=== PATIENT | male | born 1960 | race Caucasian/White ===

== ENCOUNTER 2016-12-31 14:46 | Inpatient (IN) ==
[2016-12-31] MEDS ORDERED: ADENOCARD ONE (15:01)
[2016-12-31] MEDS ORDERED: NS 1,000 ML ONE ×2 (15:02→15:36)
[2016-12-31] MEDS ORDERED: ADENOCARD IV ONE ×2 (15:17)
[2016-12-31] MEDS ORDERED: CARDIZEM 100 MG/NS 100 MG/100 ML IVPB ONE (15:17)
[2016-12-31] MEDS ORDERED: NS 1,000 ML IV ONE ×2 (15:18→16:07)
--- NOTE | 2016-12-31 15:19 | EKG Report ---
Test Performed on : 12/31/2016 2:54:18 PM Test Reason : SOB Blood Pressure : / mmHG Vent. Rate : 181 BPM Atrial Rate : 181 BPM P-R Int : 000 ms QRS Dur : 078 ms QT Int : 210 ms P-R-T Axes : 000 083 -78 degrees QTc Int : [address] \T\ T wave abnormality, consider inferior ischemia Abnormal ECG When compared with ECG of 29-MAR-2014 11:03, Vent. rate has increased BY [address] now depressed in Inferior leads ST now depressed in Lateral leads T wave inversion now evident in Inferior leads Nonspecific T wave abnormality now evident in Lateral leads Unconfirmed Result
[2016-12-31] MEDS ORDERED: CARDIZEM ONE (15:21)
[2016-12-31 15:35] LABS: MANUAL DIFF NEEDED? NO
[2016-12-31 15:37] LABS: BASO% 0.3 % (0.0-0.8); EOS# 0.01 X1000 (0.0-0.7); EOS% 0.1 % (0.0-10.0); HEMATOCRIT 39.5 % (42.0-52.0); HEMOGLOBIN 12.8 g/dL (14.0-18.0); IMM GRAN# 0.02 X1000 (0.0-0.04); IMM GRAN% 0.3 % (0.0-0.5); LYMPH# 0.78 X1000 (1.2-3.4); LYMPH% 10.2 % (20.5-51.1); MCH 28.4 PG (27-31); MCHC 32.4 g/dL (33-37); MCV 87.8 FL (81-99); MONO# 0.35 X1000 (0.11-0.59); MONO% 4.6 % (1.7-9.3); MPV 9.6 FL (7.4-10.4); NEUT% 84.5 % (42.2-75.2); PLT 131 X1000 (130-400)
[2016-12-31 16:00] LABS: AGAP 11; ALKALINE PHOSPHATASE 103 U/L (32-122); BUN 10 mg/dL (8-22); CHLORIDE 95 mmol/L (98-107); COSMO 260; GOT 151 U/L (10-34); GPT 27 U/L (10-44); POTASSIUM 3.6 mmol/L (3.5-5.1); SODIUM 130 mmol/L (136-145); TCO2 25 mmol/L (25-35)
[2016-12-31] MEDS ORDERED: NEO-SYNEPHRINE 50 MG in NS 250 ML IV SCH (16:00)
[2016-12-31 16:23] LABS: BE 0.1 mmoll (-3.0-3.0); BLOOD TYPE ARTERIAL; DRAW SITE L BRACHIAL; METHB 1.1 % (0.0-1.5); O2(CT) 15.8 mL/dL (15.0-23.0); PO2(98.6) 83 mmHg (60-100); SAMPLE BLOOD; SAO2 97.2 % (95.0-100.0); pH(98.6) 7.31 (7.35-7.45)
[2016-12-31 16:26] LABS: CK PROFILE 3874 U/L (24-204)
[2016-12-31 16:28] LABS: ALLEN TEST NO; MODALITY CANNULA; PCO2(98.6) 54 mmHg (35-45)
[2016-12-31 17:10] LABS: CK INDEX 0.2 (0.0-2.5); CK-MB 7.88 ng/mL (0.0-5.0)
[2016-12-31 17:14] LABS: INR 1.1 (0.86-1.15); PROTIME 14.5 Seconds (12.1-15.5)
[2016-12-31 17:15] LABS: PTT PL 33.7 Seconds (22.6-43.9)
--- NOTE | 2016-12-31 17:18 | Diag Imaging Result Document ---
PROCEDURE NAME: CHEST-PORTABLE - 12/31/2016 PORTABLE CHEST X-RAY: COMPARISON: 03/29/2014. FINDINGS: Heart size and pulmonary vascularity is top normal. There are ill-defined infiltrates bilaterally, mostly in the upper lobes and left lung base. No pneumothorax or large effusion. IMPRESSION: Ill-defined interstitial infiltrates bilaterally consistent with pulmonary edema or pneumonia.
--- NOTE | 2016-12-31 17:59 | Diag Imaging Result Document ---
PROCEDURE NAME: HEAD W/O CONTRAST - 12/31/[address]: A CT dose reduction protocol was used. COMPARISON: 03/29/2014. FINDINGS: The ventricles and sulci are normal in size and contour. There is no mass, hemorrhage, or evidence of acute ischemia. The bony calvaria is intact. The visualized paranasal sinuses and mastoid air cells are clear. IMPRESSION: Negative head CT. MTDD
[2016-12-31 18:06] LABS: UR AMPHETAMINES QUAL PRESUMPTIVE POSITIVE (NONE DETECT); UR BARBITUATES QUAL NONE DETECTED (NONE DETECT); UR BENZODIAZEPIN QUAL PRESUMPTIVE POSITIVE (NONE DETECT); UR CANNABINOIDS QUAL PRESUMPTIVE POSITIVE (NONE DETECT); UR COCAINE QUAL NONE DETECTED (NONE DETECT); UR MDMA QUAL NONE DETECTED (NONE DETECT); UR METHADONE QUAL NONE DETECTED (NONE DETECT); UR METHAMPHETAMINE QUAL NONE DETECTED (NONE DETECT); UR OPIATES QUAL NONE DETECTED (NONE DETECT); UR OXYCODONE QUAL NONE DETECTED (NONE DETECT); UR PCP QUAL NONE DETECTED (NONE DETECT); UR TCA QUAL NONE DETECTED (NONE DETECT)
[2016-12-31 18:10] LABS: URINE EPITHELIAL CELLS <10 /HPF (<10); URINE RBC <10 /HPF (<10); URINE WBC <10 /HPF (<10)
[2016-12-31 18:11] LABS: BILIRUBIN URINE NEGATIVE (NEGATIVE); BLOOD URINE 2+ (NEGATIVE); CLARITY CLEAR (CLEAR); COLOR YELLOW; GLUCOSE URINE NEGATIVE (NEGATIVE); LEUKOCYTES URINE TRACE (NEGATIVE); NITRITE URINE NEGATIVE (NEGATIVE); PROTEIN URINE 1+(30 mg/dL) mg/dL (NEGATIVE); URINE CULTURE PL NEEDED? YES; URINE SOURCE CLEAN CATCH; UROBILINOGEN URINE 1+(1 mg/dL)
[2016-12-31] MEDS: LEVAQUIN 750 MG/D5W 750 MG/150 ML IVPB IV SCH (19:16)
[2016-12-31] MEDS ORDERED: ZOFRAN ODT PO PRN (21:04)
[2016-12-31] MEDS ORDERED: VENTOLIN HFA INH PRN (21:04)
[2016-12-31] MEDS: ZOSYN 3.375 GM/NS 3.375 GM/50 ML IVPB IV SCH (21:49)
[2016-12-31] MEDS: XANAX PO PRN (21:50)
[2016-12-31] MEDS: LYRICA PO SCH (21:50)
[2016-12-31] MEDS: NS 1,000 ML IV SCH (21:50)
[2016-12-31] MEDS: DUONEB (A & A) INH SCH (22:35)
[2017-01-01] MEDS: AMBIEN PO PRN ×2 (01:14→20:19)
[2017-01-01] MEDS: PHENERGAN PO PRN ×2 (01:14→19:52)
[2017-01-01] MEDS: ZOSYN 3.375 GM/NS 3.375 GM/50 ML IVPB IV SCH ×4 (01:52→21:56)
[2017-01-01] MEDS: DUONEB (A & A) INH SCH ×6 (04:48→22:50)
[2017-01-01 06:37] LABS: HEMATOCRIT 37.8 % (42.0-52.0); HEMOGLOBIN 11.7 g/dL (14.0-18.0); MCH 27.9 PG (27-31); MCV 90.2 FL (81-99); RBC 4.19 XMIL (4.7-6.1)
[2017-01-01 07:40] LABS: AGAP 8; ALBUMIN 2.8 g/dL (3.5-5.0); ALKALINE PHOSPHATASE 104 U/L (32-122); BUN 7 mg/dL (8-22); CALCIUM 7.7 mg/dL (8.8-10.2); CHLORIDE 100 mmol/L (98-107); COSMO 267; GOT 132 U/L (10-34); GPT 27 U/L (10-44); MAGNESIUM 1.6 mg/dL (1.5-2.7); POTASSIUM 3.8 mmol/L (3.5-5.1); SODIUM 135 mmol/L (136-145); TCO2 27 mmol/L (25-35); TOTAL PROTEIN 5.4 g/dL (6.3-8.3)
[2017-01-01] MEDS: ADVAIR 100/50 DISKUS INH SCH ×2 (07:57→08:02)
[2017-01-01 08:10] LABS: CK INDEX 0.2 (0.0-2.5); CK-MB 6.08 ng/mL (0.0-5.0)
--- NOTE | 2017-01-01 09:56 | EKG Report ---
Test Performed on : 01/01/2017 09:12:24 AM Test Reason : SVT Blood Pressure : / mmHG Vent. Rate : 085 BPM Atrial Rate : 085 BPM P-R Int : 170 ms QRS Dur : 082 ms QT Int : 356 ms P-R-T Axes : 064 072 063 degrees QTc Int : 423 ms Sinus rhythm. with premature atrial complexes. in a pattern of bigeminy. Otherwise normal ECG When compared with ECG of 31-DEC-2016 15:35, Sinus rhythm. has replaced Atrial flutter. Confirmed by Ishaan Conrad MD ([id number]) on 01/05/2017 8:42:06 AM
[2017-01-01] MEDS: NS 1,000 ML IV SCH ×2 (09:57→23:39)
[2017-01-01] MEDS: BETAPACE PO SCH ×2 (09:59→20:19)
[2017-01-01] MEDS: PRILOSEC PO SCH ×2 (09:59→20:19)
[2017-01-01] MEDS: LYRICA PO SCH ×2 (09:59→20:20)
--- NOTE | 2017-01-01 10:01 | EKG Report ---
Test Performed on : 12/31/2016 3:35:26 PM Test Reason : SOB Blood Pressure : / mmHG Vent. Rate : 107 BPM Atrial Rate : 366 BPM P-R Int : 000 ms QRS Dur : 080 ms QT Int : 300 ms P-R-T Axes : 121 084 070 degrees QTc Int : 400 ms Atrial flutter. with variable AV block. Abnormal ECG When compared with ECG of 31-DEC-2016 14:54, (Unconfirmed) Atrial flutter. has replaced Sinus rhythm. Vent. rate has decreased BY [address] no longer depressed in Inferior leads ST no longer depressed in Lateral leads T wave inversion no longer evident in Inferior leads Nonspecific T wave abnormality no longer evident in Lateral leads Unconfirmed Result
[2017-01-01] MEDS ORDERED: TYLENOL PR PRN ×2 (15:36→21:07)
[2017-01-01] MEDS ORDERED: VANCOMYCIN IV PER PHARMACY MISC SCH (16:30)
[2017-01-01] MEDS ORDERED: SOLU-MEDROL IV SCH (17:00)
[2017-01-01 17:05] LABS: BLOOD TYPE ARTERIAL; SAMPLE BLOOD
[2017-01-01] MEDS: LEVAQUIN 750 MG/D5W 750 MG/150 ML IVPB IV SCH (17:45)
[2017-01-01] MEDS ORDERED: VANCOMYCIN 2,150 MG in NS 500 ML IV ONE (18:00)
--- NOTE | 2017-01-01 18:19 | HISTORY AND PHYSICAL ---
PRIMARY CARE PROVIDER: None. CHIEF COMPLAINT: Friend tried to wake him all day and was having difficulty. HISTORY OF PRESENT ILLNESS: Mr. Henok Orellana is a 56-year-old male with a history of COPD, bipolar disorder, seizure disorder who presented to the ER obtunded. History was mainly obtained from medical records and required constant tactile stimulation in order to obtain information. He was also found to have SVT versus atrial flutter with RVR on admission. He does take sotalol at home which is likely for this. He was able to state his name and what year it was. He reports that he has been having abdominal pain for 3 days now, but that pain is resolved. He denies diarrhea or fever, nausea or vomiting. His abdomen is soft, with hypoactive bowel sounds. Mildly distended. He also presented to the ER with hypotension and was started on Terrance- Synephrine. He was transferred to the ICU for further monitoring. PAST MEDICAL HISTORY: COPD. Concussion with skull fracture. Bipolar disorder. 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 GERD. Seizure disorder related to Xanax. Hypertension. Chronic pain syndrome. 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 Partial liver laceration. Right clavicle with plates. Right ankle with plates and screws. SOCIAL HISTORY: Smokes 1 pack per day since age of 13. He does drink alcohol. The amount is unknown. He denies any illicit drug use, but has a positive urine drug screen for amphetamines, benzodiazepines and cannabinoids. Alcohol was 0. FAMILY HISTORY: Had 2 sisters that were both bipolar. REVIEW OF SYSTEMS: Difficult to obtain secondary to lethargy. ALLERGIES: Flexeril and tramadol. HOME MEDICATIONS: Albuterol/Atrovent inhaled every 4 hours as needed. Albuterol sulfate inhaler. Xanax 1 mg p.o. 3 times a day as needed. Suboxone 8 mg sublingual 3 times a day. Advair inhaled twice daily. Omeprazole 40 mg p.o. twice daily. Zofran 4 mg p.o. every 6 hours as needed. Penicillin 500 mg p.o. twice daily. Lyrica 300 mg p.o. twice daily. Phenergan 25 mg every 6 hours as needed. Betapace sotalol 40 mg p.o. twice daily. Ambien 5 mg p.o. nightly as needed. Unsure if these medications are all accurate and up-to-date as it is difficult to obtain information from him given his neurological status. LABORATORY DATA: White blood cells 7000, hemoglobin 12, hematocrit 39, platelet count 131,000. INR 1.1. PTT 33.7, pH 7.31, pCO2 54, PO2 is 83. Base excess 0.1. Saturation 93%. Lactate 0.6, sodium was 130, potassium 3.6, BUN 10, creatinine 0.8, glucose 94, calcium 8. Total bilirubin 0.4, AST 151. ALT 27. CK 3874. MB was 7.88. Troponin less than 0.01. Plasma lactate 0.8. Urinalysis 1+ protein, 2+ ketones, 2+ blood, trace white blood cells, 2+ bacteria. Urine drug screen positive for amphetamines, positive for benzodiazepines, positive for cannabinoid and 0 alcohol. IMAGING: EKG on admit: Atrial flutter, rate was 107 at mostly 3:1. QTc 400. Chest x-ray: Interstitial infiltrates bilaterally consistent with pulmonary edema or pneumonia. EKG repeated at 3:15 p.m.: Supraventricular tachycardia, but still looks like an atrial flutter 2:3:1. Rate was 181. He had received adenosine 6 mg and 12 mg for that. Head CT negative. No acute findings. PHYSICAL EXAMINATION: VITAL SIGNS: On admit, temperature 99 degrees, heart rate was 183. Blood pressure was 91/76, saturation was 97% on nasal cannula. Respiratory rate 21. 5 feet 9 inches tall , 161 pounds, body mass index 23.8. GENERAL: Mr. Orellana today is very drowsy, he will arouse to verbal and tactile stimuli. Answers some questions, but easily falls asleep. HEENT: Atraumatic, normocephalic. Pupils are equal and reactive. Extraocular movements intact. Mucous membranes are dry. NECK: No JVD or carotid bruits noted. CARDIOVASCULAR: S1, S2. Regular rate and rhythm. No rubs, gallops, murmurs. PULMONARY: Coarse bilaterally. Rhonchi. No wheezing. No accessory muscle use or work of breathing noted. Currently on nasal cannula. GI: Soft. Semi-distended. Negative for pain. Nontender. Hypoactive bowel cells x4. NEUROLOGIC: Oriented to name and year. Very drowsy. He will follow commands. Moves all extremities equally. Facial symmetric. EXTREMITIES: No edema noted. +2 dorsalis and radial pulses. SKIN: Warm, dry, intact. ASSESSMENT AND PLAN: 1. Unresponsive secondary to toxic encephalopathy due to opiate use. No signs of withdrawal. Still continues to be very lethargic. Head computed tomography was negative. Monitor for withdrawal symptoms. 2. He was negative for cocaine. Positive for amphetamines and cannabinoids. Cessation was encouraged. 3. Atrial flutter with rapid ventricular response. Also with run of supraventricular tachycardia with a heart rate of 180s. Currently sinus rhythm, but on admit required 2 doses of adenosine and sotalol was resumed. May have to consider holding sotalol given patient has hypotension. 4. Hypotension. Currently on Terrance-Synephrine drip. 5. Bipolar disorder. 6. Chronic obstructive pulmonary disease with mild exacerbation. We will add intravenous steroids and make sure there are inhaled nebulizers. 7. Pneumonia, community acquired. Continue with Zosyn, Levaquin and vancomycin has been started. Blood culture is pending. Unable to produce enough phlegm for culture. 8. Hyponatremia. On intravenous fluid hydration. 9. Mild transaminitis likely secondary to dehydration. 10. Anemia. 11. Tobacco use. Cessation discussed. 12. Thrombosis prophylaxis. Sequential Compression Devices. 13. Gastrointestinal prophylaxis. Proton pump inhibitor. Dictated by DIONNE Alston for Herman Murillo MD cc: DIONNE Alston MD [facility]
[2017-01-01] MEDS: MUCOMYST 20% INH SCH (18:48)
[2017-01-01] MEDS: XANAX PO PRN (19:53)
[2017-01-01] MEDS ORDERED: TYLENOL ONE (21:06)
[2017-01-02] MEDS: NS 1,000 ML IV SCH ×4 (01:21→21:34)
[2017-01-02] MEDS: SOLU-MEDROL IV SCH ×3 (01:21→18:34)
--- NOTE | 2017-01-02 01:25 | PROGRESS NOTE ---
DATE: 01/01/2017 SUBJECTIVE: The patient is still sedated, but arousable. OBJECTIVE: Temperature 101.9, current 97.4, pulse 83 to 98, respiratory rate 14 to 20, BP 105/49, sat 94% on 2 L.General: Patient is somnolent but arousable. HEENT: Normocephalic, atraumatic. Neck: Supple. Cardiovascular: Regular rate. Chest: Relatively clear. Abdomen: Soft. Extremities: Moves all extremities. ASSESSMENT: 1. Toxic encephalopathy, secondary to opiate use. He continues to be very lethargic this afternoon. 2. Abnormal UDS, positive for amphetamines. 3. A flutter with rapid ventricular response. 4. Hypotension. Continue Terrance-Synephrine drip. We will wean as tolerated. 5. Bipolar. 6. COPD with exacerbation. Continue steroids and breathing treatments. 7. Pneumonia, certainly aspiration is a likely possibility. He is currently on Zosyn, Levaquin and vancomycin. 8. Hyponatremia. PLAN: We will continue patient in the ICU. We will wean off of Terrance-Synephrine as tolerated. We will recheck his labs in the morning. Further orders as needed. cc: Herman Murillo MD
[2017-01-02] MEDS: ZOSYN 3.375 GM/NS 3.375 GM/50 ML IVPB IV SCH ×4 (01:42→21:31)
[2017-01-02] MEDS: DUONEB (A & A) INH SCH ×6 (03:00→23:03)
[2017-01-02] MEDS: VANCOMYCIN 1,600 MG in NS 250 ML IV SCH ×2 (06:00→18:27)
[2017-01-02] MEDS ORDERED: PRILOSEC PO SCH (07:00)
--- NOTE | 2017-01-02 07:11 | Diag Imaging Result Document ---
PROCEDURE NAME: KUB ABDOMEN - 01/01/2017 AP SUPINE ABDOMEN: COMPARISON: Compared with 05/29/2012. FINDINGS: There are artifacts from grid lines which limit detail. The bowel gas pattern appears nonspecific and nonobstructive. There is some retained fecal debris in the colon, although this is not obviously excessive. There are surgical clips at the right upper quadrant. There is a right total hip prosthesis noted, as well of old deformity of the right iliac bone. IMPRESSION: Nonspecific bowel gas pattern.
[2017-01-02] MEDS: ADVAIR 100/50 DISKUS INH SCH ×2 (07:47→19:13)
[2017-01-02] MEDS: MUCOMYST 20% INH SCH ×2 (07:47→19:13)
[2017-01-02 07:56] LABS: MANUAL DIFF NEEDED? NO
[2017-01-02 08:05] LABS: BASO% 0.4 % (0.0-0.8); HEMATOCRIT 39.3 % (42.0-52.0); HEMOGLOBIN 12.3 g/dL (14.0-18.0); IMM GRAN# 0.01 X1000 (0.0-0.04); IMM GRAN% 0.4 % (0.0-0.5); LYMPH# 0.34 X1000 (1.2-3.4); LYMPH% 12.3 % (20.5-51.1); MCH 28.3 PG (27-31); MCHC 31.3 g/dL (33-37); MCV 90.3 FL (81-99); MONO# 0.07 X1000 (0.11-0.59); MONO% 2.5 % (1.7-9.3); MPV 9.6 FL (7.4-10.4); NEUT% 84.4 % (42.2-75.2); PLT 76 X1000 (130-400); RBC 4.35 XMIL (4.7-6.1)
[2017-01-02 08:28] LABS: AGAP 8; ALBUMIN 2.6 g/dL (3.5-5.0); ALKALINE PHOSPHATASE 183 U/L (32-122); BUN 10 mg/dL (8-22); CALCIUM 7.9 mg/dL (8.8-10.2); CHLORIDE 106 mmol/L (98-107); COSMO 285; GOT 180 U/L (10-34); GPT 51 U/L (10-44); IRON SATURATION 7 %; MAGNESIUM 1.7 mg/dL (1.5-2.7); POTASSIUM 3.9 mmol/L (3.5-5.1); SODIUM 142 mmol/L (136-145); TCO2 28 mmol/L (25-35); TIBC 173 ug/dL; TOTAL IRON 12 ug/dL (53-167); TOTAL PROTEIN 5.2 g/dL (6.3-8.3); UNBOUND IRON 161 ug/dL (112-346)
[2017-01-02] MEDS: LYRICA PO SCH (09:29)
[2017-01-02] MEDS: BETAPACE PO SCH ×2 (09:29→21:32)
--- NOTE | 2017-01-02 10:10 | PROGRESS NOTE ---
DATE: 01/02/2017 SUBJECTIVE: Today Mr. Orellana is pretty lethargic and, according to the nurses, he was boisterous last night and was given Ativan and zolpidem to help him calm down, but he has been just too obtunded today. He would kind of wake-up and stare at you, but then just go straight back to sleep. OBJECTIVE: Vital signs: Blood pressure is 107/54, pulse of 68, respirations 18 and temperature 96.6 degrees. General exam: Mr. Orellana is a 56-year-old male. He was in bed. He did not seem to be in any distress. HEENT: Mucosa is pink and moist. Anicteric. Acyanotic. Neck: Supple. There is no JVD. Chest: Air entry is bilaterally reduced. There is prolonged expiratory phase of respiration and some diffuse end-expiratory wheezing. Did not appreciate any crackles. Cardiovascular: Regular rate and rhythm. Abdomen: Soft, did not appreciate any hepatosplenomegaly. Bowel sounds are present. Extremities: No pedal edema. There is amputation of the right distal forearm. [employer]: Patient is drowsy, but would wake-up and stare at you. He would move all his extremities, but he is not following any commands. He will groan and move extremities spontaneously. LABORATORY DATA: WBC is 2.76, hemoglobin is 12.3, platelet count of 76. Chemistry: Sodium is 142, potassium is 3.9, chloride is 106, bicarbonate is 28. Renal functions are normal. AST is 180, ALT is 51, alkaline phosphatase is 182. Creatinine is 3313. ASSESSMENT: 1. Altered mental status due to toxic metabolic encephalopathy from recreational drug abuse. Patient's urine toxicology was positive for amphetamine and benzodiazepines and cannabinoids. 2. Polypharmacy drug abuse. 3. Bronchospasms with a chest x-ray consistent with infiltrates in both upper lobes concerning for aspiration pneumonia. Patient is getting antibiotics. 4. Iron deficiency anemia. This is noted. We will replace it when patient infection is better controlled. 5. Thrombocytopenia likely drug induced with possible hydration effect, as well as infectious induced. We will continue to monitor this. 6. Rhabdomyolysis. CK is pretty elevated and in the context of amphetamine, benzodiazepine and cannabinoid abuse, it is very likely he might have had mild rhabdomyolysis. We will continue with aggressive fluid resuscitation. PLAN: So, in general, Mr. Orellana is extremely drowsy today. I would withhold all his sedatives. Will continue the current antibiotic coverage. I will discontinue the levothyroxine since he is already on Zosyn and vancomycin, which I think has pretty much a very broad coverage. We will re-evaluate him later on today to see how he is doing. cc: Quirino Page MD
[2017-01-02 10:28] LABS: BE 3.1 mmoll (-3.0-3.0); DRAW SITE L RADIAL; O2(CT) 14.8 mL/dL (15.0-23.0); PO2(98.6) 54 mmHg (60-100); SAO2 91.9 % (95.0-100.0); THB 11.8 g/dL (11.5-17.4); pH(98.6) 7.31 (7.35-7.45)
[2017-01-02 10:33] LABS: PCO2(98.6) 61 mmHg (35-45)
[2017-01-02 10:34] LABS: ALLEN TEST YES; MODALITY CANNULA
[2017-01-02 16:11] LABS: FERRITIN 215 ng/mL (30-400)
[2017-01-03] MEDS: SOLU-MEDROL IV SCH ×3 (01:11→19:01)
[2017-01-03] MEDS: ZOSYN 3.375 GM/NS 3.375 GM/50 ML IVPB IV SCH ×4 (01:51→20:55)
[2017-01-03] MEDS: DUONEB (A & A) INH SCH ×6 (03:17→23:17)
[2017-01-03 03:26] LABS: BASO% 0.4 % (0.0-0.8); HEMATOCRIT 38.2 % (42.0-52.0); HEMOGLOBIN 11.7 g/dL (14.0-18.0); IMM GRAN# 0.03 X1000 (0.0-0.04); IMM GRAN% 0.6 % (0.0-0.5); LYMPH# 0.67 X1000 (1.2-3.4); LYMPH% 13.7 % (20.5-51.1); MANUAL DIFF NEEDED? YES; MCH 27.5 PG (27-31); MCHC 30.6 g/dL (33-37); MCV 89.9 FL (81-99); MONO# 0.21 X1000 (0.11-0.59); MONO% 4.3 % (1.7-9.3); MPV 9.8 FL (7.4-10.4); PLT 79 X1000 (130-400); RBC 4.25 XMIL (4.7-6.1)
[2017-01-03 03:43] LABS: ALBUMIN 2.7 g/dL (3.5-5.0); MAGNESIUM 1.8 mg/dL (1.5-2.7); POTASSIUM 3.8 mmol/L (3.5-5.1); TOTAL BILIRUBIN 0.2 mg/dL (0.20-1.00); TOTAL PROTEIN 5.4 g/dL (6.3-8.3)
[2017-01-03] MEDS ORDERED: HALDOL IV ONE (03:48)
[2017-01-03 03:52] LABS: BANDS 2 % (0-1); LYMPHS 22 % (21-51)
[2017-01-03] MEDS: NS 1,000 ML IV SCH ×3 (03:52→17:00)
[2017-01-03 03:58] LABS: CK INDEX 0.5 (0.0-2.5); CK-MB 2.97 ng/mL (0.0-5.0)
[2017-01-03] MEDS: VANCOMYCIN 1,600 MG in NS 250 ML IV SCH (05:00)
[2017-01-03] MEDS: ADVAIR 100/50 DISKUS INH SCH ×2 (07:33→20:04)
[2017-01-03] MEDS: MUCOMYST 20% INH SCH (07:33)
[2017-01-03] MEDS: BETAPACE PO SCH ×2 (10:42→20:56)
--- NOTE | 2017-01-03 11:09 | PROGRESS NOTE ---
DATE: 01/03/2017 SUBJECTIVE: Today Mr. Orellana refers to be doing fine. I understand he had a lot of agitation and bad behaviors overnight. OBJECTIVE: Vital Signs: Blood pressure is 147/94, pulse is 78, respiration is 19, temperature is 98.2 degrees. General: Mr. Orellana is a 56-year-old male. He was in bed. He did not seem to be in any remarkable distress. HEENT: Mucosa is pink, slightly dry. Anicteric. Acyanotic. Neck: Supple. Chest: Good air entry bilateral. There is diffuse bilateral wheezing and expiratory wheezing. There is also prolonged expiratory phase of respiration. I did not appreciate any crackles. Cardiovascular: Regular rate and rhythm. No murmurs, no rubs, no gallops. Abdomen: Soft. Mildly distended, but nontender. There are some old surgical scars on the anterior abdominal wall. Central Nervous System: The patient is alert, follows commands. He seems to be disoriented to place, but he is oriented to person. Extremities: The patient has a right below-elbow amputation. LABORATORY DATA: WBC is 4.89, hemoglobin is 11.7, platelet count is 79,000. Chemistry: Sodium is 141, potassium is 3.8, chloride is 108, bicarbonate is 25; creatinine is 1.9, which has worsened since yesterday. AST is down to 103, ALT is normalized to 38. Alkaline phosphatase is down to 133. Creatine kinase is 548, which is remarkably improved. Cortisol level is 8.8. ASSESSMENT AND PLAN: 1. Altered mental status due toxic metabolic encephalopathy from recreational drug abuse. The patient's toxicology was positive for benzodiazepines, amphetamines, cannabinoids. While he is in the hospital, I understand he has been every now and then getting agitated and boisterous and gets very offensive behaviors. We will use as needed Haldol to control agitation if necessary. 2. Polydrug abuse. 3. Bronchospasms, with a chest x-ray consistent with infiltrates in both upper lobes concerning for aspiration pneumonia. We will continue with the current antibiotics. 4. Suspected chronic obstructive pulmonary disease. We will continue with adequate bronchodilation, steroids, and antibiotics. 5. Iron deficiency anemia. This is noted. We will replace this when the infection is under control. 6. Thrombocytopenia. This is improving. 7. Rhabdomyolysis. The patient came in with a creatine kinase of 3874. It is down to 548 today, showing improvement. 8. Acute kidney injury. Creatinine has worsened to 1.9; however, the patient's urine output has picked up this morning to about 50 mL/hour. We are going to continue with the normal saline at 150 mL/hour and review him later today. We will pay particular attention to his cardiorespiratory status to make sure he does not have fluid overload. 9. Transient adrenal insufficiency. Cortisol level was 8.8. Unfortunately, the patient was started on methylprednisolone, so we will not be able to do a stress test, but I would advise that he follows up with endocrine somewhat later to check on this. 10. Hypotension is resolved. The patient now is off the pressors. Both blood culture and urine cultures have also been negative. I think this is probably related to the transient adrenal insufficiency, which the steroid is helping. 11. Constipation on a chest x-ray. We will would address this more symptomatically. 12. Atrial fibrillation with rapid ventricular response on presentation. This is controlled. I think this is probably related to the drugs that he has been on. The patient is on sotalol and that is one of his home medications. As I said, rate is better controlled now. cc: Quirino Page MD
[2017-01-04] MEDS: SOLU-MEDROL IV SCH ×3 (01:19→17:33)
[2017-01-04] MEDS: NS 1,000 ML IV SCH ×4 (01:21→08:29)
[2017-01-04] MEDS: ZOSYN 3.375 GM/NS 3.375 GM/50 ML IVPB IV SCH ×2 (02:15→08:24)
[2017-01-04] MEDS: DUONEB (A & A) INH SCH ×6 (04:34→23:30)
[2017-01-04 07:25] LABS: BASO% 0.6 % (0.0-0.8); EOS# 0.05 X1000 (0.0-0.7); EOS% 0.8 % (0.0-10.0); HEMATOCRIT 41.3 % (42.0-52.0); HEMOGLOBIN 12.9 g/dL (14.0-18.0); IMM GRAN# 0.03 X1000 (0.0-0.04); IMM GRAN% 0.5 % (0.0-0.5); LYMPH# 0.56 X1000 (1.2-3.4); LYMPH% 8.9 % (20.5-51.1); MANUAL DIFF NEEDED? YES; MCH 28.1 PG (27-31); MCHC 31.2 g/dL (33-37); MONO# 0.24 X1000 (0.11-0.59); MONO% 3.8 % (1.7-9.3); MPV 10.8 FL (7.4-10.4); NEUT% 85.4 % (42.2-75.2); PLT 79 X1000 (130-400); RBC 4.59 XMIL (4.7-6.1)
[2017-01-04] MEDS: MUCOMYST 20% INH SCH ×2 (07:26→19:30)
[2017-01-04 07:53] LABS: AGAP 14; ALBUMIN 2.8 g/dL (3.5-5.0); ALKALINE PHOSPHATASE 117 U/L (32-122); BUN 34 mg/dL (8-22); CALCIUM 8.1 mg/dL (8.8-10.2); CHLORIDE 108 mmol/L (98-107); COSMO 295; GOT 61 U/L (10-34); GPT 31 U/L (10-44); MAGNESIUM 1.9 mg/dL (1.5-2.7); POTASSIUM 3.9 mmol/L (3.5-5.1); SODIUM 143 mmol/L (136-145); TCO2 21 mmol/L (25-35); TOTAL PROTEIN 5.8 g/dL (6.3-8.3)
[2017-01-04 08:14] LABS: BANDS 6 % (0-1); LYMPHS 14 % (21-51); MONO 8 % (1-9)
[2017-01-04] MEDS ORDERED: SODIUM BICARBONATE 8.4% 150 MEQ in D5W 1,000 ML IV SCH (08:57)
[2017-01-04] MEDS ORDERED: ZOSYN 2.25 GM/NS 2.25 GM/50 ML IVPB IV SCH (09:00)
--- NOTE | 2017-01-04 10:06 | Diag Imaging Result Document ---
PROCEDURE NAME: CHEST-PORTABLE - 01/04/2017 PORTABLE CHEST X-RAY, 01/04/2017: COMPARISON: 12/31/2016. FINDINGS: There is perhaps some mild worsening in the ill-defined bibasilar infiltrates, most notably in the costophrenic angles. Heart size remains normal. Stable pulmonary vascular congestion. Minimal upper lobe infiltrates are decreased from prior. No pneumothorax or large effusion. IMPRESSION: Mixed changes, with overall worsening in the lung bases.
[2017-01-04 10:33] LABS: URINE SOURCE CATH
[2017-01-04 10:41] LABS: UR CREAT RANDOM 52.6 mg/dL (14-26)
[2017-01-04 10:43] LABS: BILIRUBIN URINE NEGATIVE (NEGATIVE); BLOOD URINE 1+ (NEGATIVE); CLARITY CLEAR (CLEAR); COLOR YELLOW; GLUCOSE URINE NEGATIVE (NEGATIVE); LEUKOCYTES URINE NEGATIVE (NEGATIVE); NITRITE URINE NEGATIVE (NEGATIVE); PROTEIN URINE TRACE mg/dL (NEGATIVE); URINE MICROSCOPIC NEEDED? YES; UROBILINOGEN URINE NORMAL
--- NOTE | 2017-01-04 10:44 | PROGRESS NOTE ---
DATE: 01/04/2017 SUBJECTIVE: Today Mr. Orellana refers to be doing fine. Per the nursing staff, he was a little bit more calm last night. His urine output is consistently about 50 mL per hour. OBJECTIVE: Vital Signs: Blood pressure is 143/86, pulse of 80, respirations 20 , and temperature is 98.0. General: Mr. Orellana is a 56-year-old male. He was in bed. He did not seem to be in any distress. He was sleeping but was easily arousable. HEENT: Mucosa is pink and slightly dry. Anicteric. Acyanotic. Neck: Supple. Chest: Air entry is bilaterally reduced. There are bilateral end expiratory wheezes without prolonged phase of expiration and there are also a few bibasilar crackles. Cardiovascular: Regular rate and rhythm. No murmurs. No rubs. No gallops. Abdomen: Soft and distended but nontender. Bowel sounds are slightly hypoactive. There are some old surgical scars on the anterior abdominal wall. Central Nervous System: Patient is sleepy but easily arousable; oriented to person but disoriented to place and to time. Extremities: No pedal edema. 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 LABORATORY DATA: WBC is 6.31, hemoglobin 12.2, and platelet count 79. Sodium is 143, potassium 3.9, chloride 108, and bicarb 21. BUN is up to 34. Creatinine is up to 2.6. AST is down to 61. ALT has normalized. Alkaline phosphatase has normalized. ASSESSMENT: 1. Altered mental status due to toxic metabolic encephalopathy from recreational drug abuse. Patient's urine toxicology on presentation was positive for benzodiazepines, amphetamines, and cannabinoids. He is a whole lot better today than days before. We will use p.r.n. Haldol if necessary for agitation. 2. Recreational polydrug abuse. 3. Bronchospasm with chest x-ray consistent with infiltrates in both upper lobes concerning for aspiration during the time the patient was encephalopathic. We will continue with the current antibiotics. However, we will discontinue the vancomycin and renal dose the Zosyn. 4. Chronic obstructive pulmonary disease. The patient will continue with bronchodilators, steroids, and antibiotics. 5. Iron deficiency anemia. This is noted. We will replace with oral supplements when the lung infection is improved. 6. Rhabdomyolysis. The patient presented with a CK of 3,874 and this has gradually improved. Yesterday it was 548. We will repeat it today and see where are. 7. Acute kidney injury. Creatinine is worsening. Suspected ATN The patient continues to have marginal adequate urine output with 50 mL per hour. I have been told by the nurse that he had a total of 1,065 urine output for the whole of yesterday. I think this is multifactorial. When the patient came in he was hypotensive and he also had atrial fibrillation with a rapid ventricular response with the potential that it would also cause low perfusion to the kidneys. The patient's vancomycin level has also been ridiculously high. Yesterday it was 37 and today it is 37.5 which could potentially also cause vancomycin-induced nephropathy. We have discontinued the vancomycin. I have renally dosed the Zosyn. We will do a urine sodium and urine creatinine to get a fractional excretion of sodium. I have changed the current normal saline to D5 normal saline because his chloride is high and the patient is getting slightly acidotic to improve on all that and see if we can improve on the renal function as well. I will consult nephrology as well to have a look at the patient. 8. Transient adrenal insufficiency. Cortisol level was 8.8 on presentation. The patient is currently on methylprednisolone for the chronic obstructive pulmonary disease and it seems to be helping with the renal insufficiency as well. The patient's blood pressure is now adequate. 9. Hypotension on presentation. The patient was on pressors. He is currently off. I think it was a combination of adrenal insufficiency and an infection from the lungs. 10.Constipation. We will address this more symptomatically. The patient has not had any bowel movement. 11.Atrial fibrillation with rapid ventricular response on presentation. This is currently rate controlled. The patient is on Sotalol as his home medication. So, in general I think Mr. Orellana is doing better. His drug-related issue seems to have been improving. However, his kidney functions are getting worse. We are going to do urine studies and a urine ultrasound. I have discontinued the vancomycin. I will also renally dose the Zosyn for the lung aspiration pneumonia/COPD. We will get a chest x-ray of the lungs as well and do a total CK today to see where his rhabdomyolysis is and we will consult nephrology to evaluate the patient. cc: Quirino Page MD [facility]
[2017-01-04 10:52] LABS: URINE EPITHELIAL CELLS <10 /HPF (<10); URINE RBC <10 /HPF (<10); URINE WBC <10 /HPF (<10)
[2017-01-04] MEDS: ADVAIR 100/50 DISKUS INH SCH (11:29)
[2017-01-04] MEDS: BETAPACE PO SCH ×2 (11:59→20:07)
[2017-01-04] MEDS ORDERED: DULCOLAX PR ONE (12:15)
[2017-01-04] MEDS: DULCOLAX PR ONE ×2 (12:25→15:09)
[2017-01-04] MEDS: MIRALAX PO SCH (12:26)
[2017-01-04] MEDS ORDERED: SALINE LOCK IV FLUID XX ONE (14:14)
[2017-01-04] MEDS: ZOSYN 2.25 GM/NS 2.25 GM/50 ML IVPB IV SCH ×2 (14:50→20:05)
--- NOTE | 2017-01-04 16:11 | CONSULTATION ---
DATE OF CONSULTATION: 01/04/2017 REASON FOR ADMISSION: 1. Encephalopathy secondary to polypharmacy. 2. Atrial flutter with rapid ventricular response, felt secondary to drug use. 3. Hypotension. 4. Rhabdomyolysis. 5. Acute kidney injury. REASON FOR CONSULTATION: Acute kidney injury. CONSULTING PHYSICIAN: Dr. Quirino Page. HISTORY OF PRESENT ILLNESS: This is a 56-year-old gentleman with a past history of COPD, bipolar and seizure disorder, who uses multiple drugs that are not prescribed to him. Apparently, the family or friends were unable to get him to wake up and brought him to the emergency room. He was found to be positive for amphetamines, benzodiazepines, cannabinoids. In the emergency room, he was noted to be quite hypotensive. He was started on Terrance-Synephrine. Has been having some abdominal pain. He was also noted to be in atrial flutter with RVR. He had apparently not been taking his sotalol. He was treated medically and admitted to the hospital for further workup and treatment. CT scan of the head was negative. He was treated for withdrawal possibilities. Over the course of the hospitalization, his renal function has gradually worsened. Initially, creatinine was 0.7 and today is 2.6. He has been quite agitated throughout the course of the hospitalization and today was able to examine the patient, but he could give no history or any additional information. Patient has been treated with bicarbonate for his initial rhabdomyolysis with a CK of 3874, which is now down to 170 and resolved. He was noted to have possible pneumonia, and has been treated with vancomycin, Rocephin, and Zosyn. His vancomycin has been held. His Zosyn has been changed to a lower dose. 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 PAST SURGICAL HISTORY: Right upper extremity hefqz-[id number]-sudve amputation, right total hip, splenectomy. He has had a liver laceration in the past. He has had a right clavicle repair with pin and plates, and a right ankle repair with plate and pin. ALLERGIES: Flexeril and tramadol. HOME MEDICATIONS: Listed per chart. CURRENT MEDICATIONS: Ventolin, Zofran, DuoNeb, Advair, Betapace, Mucomyst, Tylenol, Solu-Medrol, Haldol, MiraLAX, and Zosyn. FAMILY HISTORY: He has family that have bipolar disorder. SOCIAL HISTORY: He smokes a pack a day. Positive ETOH use. He has urine drug screen positive for amphetamines, benzodiazepines, and cannabinoids. REVIEW OF SYSTEMS: Unobtainable secondary to patient's current mental status. PHYSICAL EXAMINATION: Vital Signs: Temperature 97.9 degrees, pulse 78, respiratory rate 19, blood pressure 140/72. Intake 4.4 L. Output 1 L. Of note, he is at least 9 L positive over the last 72 hours. General: This is a middle-aged gentleman in bed. He is quite agitated, cursing at the staff, refusing to follow commands. HEENT: Normocephalic, atraumatic. Conjunctivae are pink. ESTRADA. His oral mucosa is moist. Dentition poor. Neck: Supple. Unable to discern JVD. Cardiovascular: Regular rhythm on the monitor. Pulmonary: He has scattered wheezes bilaterally and some rhonchi with decreased breath sounds to the bases. Abdomen: Soft. He has positive bowel sounds. Genitourinary: Not inspected. He has a Lewis catheter with a moderate amount of yellow urine noted. Extremities: No clubbing, cyanosis, or edema. Integumentary: Skin is warm and dry. Neurologic: Confused, agitated. LABORATORY DATA: WBC of 6.3, hemoglobin 12.9, hematocrit 41.3, and platelet count of 79,000. Sodium 143, potassium 3.9, chloride 108, CO2 of 21, BUN 34, creatinine 2.6. This is up from 1.9 yesterday and 0.6 the day before. His CK is 170. Random vancomycin 37.5. His urinalysis showed 1+ blood and trace protein. He did have an FENa calculated at 1.69. He has a renal ultrasound ordered that has not been completed. ASSESSMENT AND PLAN: 1. Acute kidney injury. The patient's FENa does not indicate that he has intravascular volume depletion and his physical examination indicates that he actually appears a little bit overloaded. Will stop his fluids at this time. From the charting, it appears he is taking in adequate p.o. intake. We will check laboratories in the morning. Again, will wait on the ultrasound results. 1. Electrolytes, acid-base balance. These are acceptable. We stopped his bicarbonate drip and his CO2 was actually 21 today. 2. Fluid volume. Again, he is around 9 L positive over the last 72 hours. Continue to monitor. 3. Hypertension, controlled. 4. Altered mental status secondary to metabolic encephalopathy from recreational drug use, followed by primary and Cardiology. It is possible, dependent on how the patient was utilizing these drugs, he could be having some acute tubular necrosis secondary to that. He has no absolute indication for dialysis at this time. Again, will continue to monitor, obtain laboratories on a daily basis, and make decisions based on that information. Thank you for the consult. Seen, data reviewed, discussed with Sydnie Monroy on 01/04/17. I agree with the above assessment and plan of care. rg Dictated by DIONNE Solis for Bill Villagran MD cc: Bill Villagran MD [facility]
[2017-01-04] MEDS ORDERED: SODIUM BICARBONATE 8.4% 100 MEQ in D5W 1,000 ML IV SCH (17:00)
--- NOTE | 2017-01-04 17:02 | Diag Imaging Result Document ---
PROCEDURE NAME: US RENAL 2 (RETROPER) COMPLETE - 01/04/2017 PORTABLE BILATERAL RENAL ULTRASOUND: Compared to 09/12/2013. FINDINGS: There is mild limitation of detail associated with the portable technique. The right kidney measures 13.3 x 4.4 x 4.8 cm in size. The left kidney measures 11.2 x 4.9 x 6.1 cm in size. There is no renal mass or hydronephrosis identified. There is no discrete renal stone identified. The urinary bladder is decompressed by a Lewis catheter which substantially limits evaluation. There is no obvious urinary bladder lesion seen. There are bilateral pleural effusions noted. IMPRESSION: No visible renal abnormality. No hydronephrosis.
[2017-01-04] MEDS: HALDOL IV PRN (20:17)
[2017-01-05] MEDS: HALDOL IV PRN ×4 (02:42→22:01)
[2017-01-05] MEDS: SOLU-MEDROL IV SCH ×3 (02:43→17:00)
[2017-01-05] MEDS: ZOSYN 2.25 GM/NS 2.25 GM/50 ML IVPB IV SCH ×5 (02:43→19:46)
[2017-01-05] MEDS: DUONEB (A & A) INH SCH ×6 (03:30→22:44)
[2017-01-05 06:37] LABS: BASO% 0.5 % (0.0-0.8); EOS# 0.06 X1000 (0.0-0.7); EOS% 0.7 % (0.0-10.0); HEMATOCRIT 41.8 % (42.0-52.0); HEMOGLOBIN 13.5 g/dL (14.0-18.0); IMM GRAN# 0.06 X1000 (0.0-0.04); IMM GRAN% 0.7 % (0.0-0.5); LYMPH# 0.49 X1000 (1.2-3.4); LYMPH% 5.7 % (20.5-51.1); MANUAL DIFF NEEDED? YES; MCH 28.5 PG (27-31); MCHC 32.3 g/dL (33-37); MCV 88.2 FL (81-99); MONO# 0.45 X1000 (0.11-0.59); MONO% 5.3 % (1.7-9.3); MPV 11.5 FL (7.4-10.4); NEUT% 87.1 % (42.2-75.2); PLT 88 X1000 (130-400); RBC 4.74 XMIL (4.7-6.1)
[2017-01-05 07:01] LABS: ALBUMIN 3.1 g/dL (3.5-5.0); CALCIUM 8.1 mg/dL (8.8-10.2); TOTAL BILIRUBIN 0.4 mg/dL (0.20-1.00); TOTAL PROTEIN 5.6 g/dL (6.3-8.3)
[2017-01-05 07:55] LABS: HYPOCHROM OCCASIONAL; LYMPHS 10 % (21-51); MONO 1 % (1-9); NRBC 1 % (0-0)
[2017-01-05] MEDS: MUCOMYST 20% INH SCH ×2 (08:23→19:18)
[2017-01-05] MEDS: ADVAIR 100/50 DISKUS INH SCH ×2 (08:23→19:18)
[2017-01-05] MEDS: MIRALAX PO SCH (09:23)
[2017-01-05] MEDS: BETAPACE PO SCH ×2 (09:23→20:32)
--- NOTE | 2017-01-05 13:43 | PROGRESS NOTE ---
DATE: 01/05/2017 SUBJECTIVE: Mr. Orellana is complaining of being stuck for IV access. No shortness of breath. He is not participating. OBJECTIVE: Vital Signs: Blood pressure 183/106, heart rate 77, respirations 16, and afebrile. Intake 2.3 L. Output 1.2 L General: No acute distress. He is awake and alert but again will not participate with the exam. Skin: Warm and dry with multiple bruises and ecchymoses. Conjunctivae are pink. Pupils are equal. Oropharynx not examined. Neck: Neck veins are not distended. Heart: Regular. Lungs: Equal breath sounds. No crackles are audible. Abdomen: Soft, nontender. Bowel sounds present. Extremities: 1 to 2+ edema primarily around the hips. LABORATORY DATA: Sodium 146, potassium 4.0, chloride 110, bicarbonate 21, BUN 41, creatinine 2.6. IMPRESSION: 1. Acute kidney injury. BUN and creatinine have stabilized. He has good urine output. No changes. We have stopped his IV fluids yesterday. 2. Electrolytes are acceptable. 3. Acid-base acceptable. cc: Bill Villagran MD
[2017-01-05] MEDS ORDERED: MORPHINE ONE (14:21)
--- NOTE | 2017-01-05 15:04 | PROGRESS NOTE ---
DATE: 01/05/2017 SUBJECTIVE: Mr. Orellana looks agitated today, as per nursing staff he has been complaining about pain mostly at the level of the back and also the urine output has been borderline low. Nephrology department has been following this patient. This patient had a difficult IV access, for now we are going to keep this patient on a 20-gauge line on 1 of the feet but probably he will need a central line in the near future. This patient has been on buprenorphine and Xanax for a long period of time. I personally called [facility] in [place], [place] and they told me that the last time he refilled his medications was on 12/26/2016 and the first time that he did it over there was on July 2016. The doctor who prescribed the medication is Isabella Friedman. He has been on buprenorphine 8 mg sublingual t.i.d. and Xanax 1.5 mg twice a day schedule. So given his agitation probably this is secondary to a withdrawal, I will put this patient back on buprenorphine and I will decrease the dose of Xanax from 1.5 twice a day to 1 mg twice a day. He will received a dose of morphine for his pain and we will monitor. OBJECTIVE: Vital Signs: Temperature 98.5 degrees, pulse 77, respiratory rate 16, blood pressure 183/108, O2 saturation 91% on nasal cannula. HEENT: Head normocephalic. No trauma. PERRLA. Neck: Supple. No JVD. No masses. Central trachea. Lungs: Decreased breath sounds bilaterally with mild rales at the bases. Prolonged expiatory phase, mild expiatory wheezes. Heart: RRR. No murmurs. Abdomen: Soft, mild distended but nontender. Positive bowel sounds. I can see a surgical scar at the level of the anterior abdominal wall. Neurological: The patient is alert. He is somewhat agitated. He is confused. He is oriented in person. He is answering some of my questions but not all of them. LABORATORY: WBC 8.5, hemoglobin 13.5, hematocrit 41.8, platelets 88,000. Sodium 146, potassium 4, chloride 110, bicarbonate 21, BUN 41, creatinine 2.6, glucose 124, calcium 8.1, magnesium 2. ASSESSMENT AND PLAN: 1. Altered mental status due to metabolic encephalopathy probably related to recreational drug abuse. The patient's urine toxicology on presentation was positive for benzodiazepine, amphetamine and cannabinoids, this patient has been on Xanax and buprenorphine at least since July. I will put this patient back on his medication because he is agitated today. Probably he is having withdrawal. 2. Drug abuse aware. Once this patient is better I will do daily cessation education. 3. Chronic obstructive pulmonary disease. Continue with bronchodilators, steroids and antibiotics. 4. Iron deficiency anemia. We will start oral supplementation when the lung infection is better. 5. Rhabdomyolysis improving. 6. Acute kidney injury likely related to acute tubular necrosis. Nephrology Department is following this patient. 7. Pneumonia. Continue with Zosyn renally dosed. So far blood cultures has been negative. 8. Transient adrenal insufficiency. Cortisol level was 8.8 on presentation. This patient is currently on methylprednisolone. The blood pressure is better now. 9. Hypotension improved. Now this patient has high blood pressure. 10. Atrial fibrillation with rapid ventricular response on presentation rate controlled. Continue this patient on sotalol and his home medication. cc: Isrrael Newell MD
[2017-01-05] MEDS: SUBUTEX SL SCH (16:55)
[2017-01-05] MEDS: XANAX PO SCH (20:33)
[2017-01-06] MEDS: SOLU-MEDROL IV SCH ×4 (01:31→20:43)
[2017-01-06] MEDS: ZOSYN 2.25 GM/NS 2.25 GM/50 ML IVPB IV SCH ×4 (01:31→19:39)
[2017-01-06 03:32] LABS: BE 1.1 mmoll (-3.0-3.0); BLOOD TYPE ARTERIAL; DRAW SITE L RADIAL; METHB 0.8 % (0.0-1.5); O2(CT) 16.8 mL/dL (15.0-23.0); PO2(98.6) 95 mmHg (60-100); SAMPLE BLOOD; SAO2 98.4 % (95.0-100.0); THB 12.4 g/dL (11.5-17.4); pH(98.6) 7.29 (7.35-7.45)
[2017-01-06 03:37] LABS: ALLEN TEST YES; MODALITY CANNULA; PCO2(98.6) 60 mmHg (35-45)
[2017-01-06] MEDS: DUONEB (A & A) INH SCH ×6 (04:08→23:17)
[2017-01-06] MEDS: HALDOL IV PRN ×2 (04:37→20:49)
[2017-01-06 06:01] LABS: BASO% 0.1 % (0.0-0.8); HEMATOCRIT 38.8 % (42.0-52.0); HEMOGLOBIN 12.1 g/dL (14.0-18.0); IMM GRAN# 0.04 X1000 (0.0-0.04); IMM GRAN% 0.5 % (0.0-0.5); LYMPH# 0.32 X1000 (1.2-3.4); LYMPH% 4.1 % (20.5-51.1); MANUAL DIFF NEEDED? YES; MCH 27.6 PG (27-31); MCHC 31.2 g/dL (33-37); MCV 88.4 FL (81-99); MONO# 0.19 X1000 (0.11-0.59); MONO% 2.5 % (1.7-9.3); MPV 10.8 FL (7.4-10.4); NEUT% 92.8 % (42.2-75.2); PLT 131 X1000 (130-400); RBC 4.39 XMIL (4.7-6.1)
[2017-01-06 06:37] LABS: ALBUMIN 3.2 g/dL (3.5-5.0); CALCIUM 8.5 mg/dL (8.8-10.2); MAGNESIUM 2.3 mg/dL (1.5-2.7); POTASSIUM 4.2 mmol/L (3.5-5.1); TOTAL BILIRUBIN 0.5 mg/dL (0.20-1.00); TOTAL PROTEIN 5.7 g/dL (6.3-8.3)
[2017-01-06 06:55] LABS: LYMPHS 5 % (21-51); MONO 2 % (1-9)
[2017-01-06] MEDS: MUCOMYST 20% INH SCH ×2 (07:10→19:48)
[2017-01-06] MEDS: ADVAIR 100/50 DISKUS INH SCH (07:10)
[2017-01-06] MEDS: SUBUTEX SL SCH ×3 (08:36→17:01)
[2017-01-06] MEDS: BETAPACE PO SCH (08:37)
[2017-01-06] MEDS: XANAX PO SCH ×2 (08:37→20:39)
[2017-01-06] MEDS: MORPHINE IV PRN ×3 (08:48→21:15)
[2017-01-06] MEDS: MIRALAX PO SCH (09:38)
[2017-01-06] MEDS ORDERED: LASIX IV ONE (10:05)
--- NOTE | 2017-01-06 10:24 | Diag Imaging Result Document ---
PROCEDURE NAME: CHEST-PORTABLE - 01/06/2017 PORTABLE CHEST: COMPARISON: 01/04/2017. FINDINGS: The lungs are well expanded. There are increased interstitial markings believed to be prominent vasculature. The heart is not enlarged. No pleural effusions. There has been prior surgery to each clavicle. The overall appearance of the chest is similar to that of the prior exam. IMPRESSION: Pulmonary edema with no interval improvement.
--- NOTE | 2017-01-06 12:10 | PROGRESS NOTE ---
DATE: 01/06/2017 SUBJECTIVE: This morning he had significant difficulty with shortness of breath. They concern that he would require intubation. He was treated with increased oxygen, inhalers, furosemide. His symptoms are somewhat improved. He is currently still unwilling to participate with exam and did not answer questions. OBJECTIVE: Vital Signs: Blood pressure 192/121, heart rate 89, respirations 24, afebrile. Intake 400 mL. Output 2.5 L. General: Increased work of breathing. Skin: Warm and dry. Conjunctivae are pink. Neck: Neck veins not appreciated. Trachea is midline. Heart: Regular. No gallops. Lungs: Have equal breath sounds. A few bilateral crackles. Abdomen: Soft, nontender. Bowel sounds are present. Extremities: Trace edema around the hips. No clubbing or cyanosis. LABORATORY DATA: Sodium 146, potassium 4.2, chloride 108, bicarbonate 21, BUN 53, creatinine 3.0. IMPRESSION: 1. Acute kidney injury. BUN and creatinine continue to rise. Given his pulmonary status, we will hold on any IV fluids today. We will recheck his urine electrolytes. 2. Decompensated heart failure. We will add nitrates. cc: Bill Villagran MD
--- NOTE | 2017-01-06 12:32 | PROGRESS NOTE ---
DATE: 01/06/2017 SUBJECTIVE: Mr. Orellana looks agitated today. In the morning also he had he was having a low oxygen saturation. We had a chest x-ray that showed mild congestion/vascular congestion and for that I treated this patient with one time dose of Lasix. This patient was complaining of pain so I went ahead and I want to start using morphine 2 mg every 4 hours. His blood pressure was around 190s but after treating this patient with morphine the oxygen saturation and the blood pressure got better. At this moment it is around 150s. Of course, this patient also received a dose of Lasix stat. This patient has been on buprenorphine and Xanax for a long period of time. I personally called yesterday the pharmacy, [facility] in [place], [place] and they told me that the last time he refilled his medication was on 12/26/2016 and the first time that he went to the pharmacy to get his medications was on July 2016. The doctor who prescribed the medication is Dr. Arnel Mason. As per the pharmacist he has been on buprenorphine 8 mg sublingual t.i.d. and Xanax 1.5 mg twice a day scheduled. So given his agitation probably this is secondary to a withdrawal. I put this patient already back on buprenorphine and I decreased the dose of Xanax to 1 mg twice a day. Given his multiple problems, including respiratory failure in the morning I was thinking about intubation and mechanical ventilation, but he looks a little bit better at this moment. He needs to be evaluated by Pulmonary Department and continue treatment in the ICU. Nephrology Department is already on board and taking care of this patient. OBJECTIVE: Vital Signs: Temperature 97.7 degrees, pulse 98, respiratory rate 24, blood pressure at 8 a.m. was 192/121. At this moment the systolic blood pressure is around 150s. O2 saturation 97% on a mask. General: When I evaluated this patient in the morning this patient was agitated and moving, also he was moaning. I do believe that this patient was talking nonsense. HEENT: Head normocephalic. No trauma. PERRLA. Neck: Supple. No JVD. No masses. Central trachea. Lungs: Decreased breath sounds bilaterally with rales at the bases. Prolonged expiratory wheezes. It looks like he is not moving air properly. Cardiovascular: RRR. No murmurs. Abdomen: Soft, mildly distended but nontender. Positive bowel sounds. He has a surgical scar at the level of the anterior abdominal wall. Neurological: The patient is alert. He is agitated. He is confused. I think he is oriented in person. LABORATORIES: WBC 7.7, hemoglobin 12.1, hematocrit 38.8, platelets 131,000. Sodium 146, potassium 4.2, chloride 108, bicarbonate 17. BUN 53, creatinine 3.0. Glucose 123. Calcium 3.5, magnesium 2.3. ASSESSMENT AND PLAN: 1. Altered mental status due to metabolic encephalopathy probably related to recreational drug abuse. At this moment probably also related to withdrawal. This patient's urine toxicology on presentation was positive for benzodiazepine, amphetamine and cannabinoids. This patient has been on Xanax and buprenorphine at least at least since July. I already put this patient back on his medications since he has been agitated. 2. Acute hypercapnic respiratory failure likely related to COPD exacerbation. I increased the dose of the steroids. I will continue with the antibiotics and bronchodilators. This patient is already on oxygen as well. We did a chest x-ray that showed some vascular congestion at the level of the lungs. I went ahead and used furosemide 1 time dose IV. 3. Chronic obstructive pulmonary disease exacerbation. Continue with bronchodilator, steroids and antibiotics. 4. Iron deficiency anemia. We will start oral supplementation when the lung infection is better. 5. Pneumonia. Continue with Zosyn renally dosed. So far, the cultures have been negative. 6. Acute kidney injury likely related to acute tubular necrosis. Nephrology Department is following this patient. 7. Possible chronic pain syndrome. I put this patient on morphine p.r.n., will continue to monitor this patient. 8. Transient adrenal insufficiency. Cortisol level was 8.8 on presentation. This patient is currently on methylprednisolone. His blood pressure is being high now. 9. Hypotension improved. 10. Atrial fibrillation with RVR on presentation, rate controlled. Continue with sotalol and his home medication. cc: Isrrael Newell MD
[2017-01-06] MEDS: NITROGLYCERIN TOP SCH ×3 (12:45→23:19)
[2017-01-06 12:49] LABS: BE 3.7 mmoll (-3.0-3.0); BLOOD TYPE ARTERIAL; DRAW SITE L RADIAL; METHB 1.3 % (0.0-1.5); PO2(98.6) 70 mmHg (60-100); SAMPLE BLOOD; SAO2 96.2 % (95.0-100.0); THB 12.2 g/dL (11.5-17.4); pH(98.6) 7.34 (7.35-7.45)
[2017-01-06 12:55] LABS: ALLEN TEST YES; MODALITY VENTIMASK; PCO2(98.6) 57 mmHg (35-45)
[2017-01-06] MEDS ORDERED: ATIVAN IV ONE (13:49)
[2017-01-06 15:18] LABS: UR CREAT RANDOM 17.4 mg/dL (14-26)
[2017-01-06] MEDS: ATIVAN IV PRN (21:15)
[2017-01-06 21:35] LABS: ALLEN TEST YES; BE 5.6 mmoll (-3.0-3.0); BLOOD TYPE ARTERIAL; DRAW SITE R RADIAL; METHB 1.7 % (0.0-1.5); O2(CT) 14.9 mL/dL (15.0-23.0); PO2(98.6) 69 mmHg (60-100); SAMPLE BLOOD; SAO2 96.3 % (95.0-100.0); THB 11.4 g/dL (11.5-17.4); pH(98.6) 7.34 (7.35-7.45)
[2017-01-06 21:37] LABS: MODALITY VENTIMASK; PCO2(98.6) 61 mmHg (35-45)
[2017-01-07] MEDS: SOLU-MEDROL IV SCH ×4 (02:19→23:28)
[2017-01-07] MEDS: ZOSYN 2.25 GM/NS 2.25 GM/50 ML IVPB IV SCH ×4 (02:26→19:46)
[2017-01-07] MEDS: DUONEB (A & A) INH SCH ×6 (04:02→22:45)
[2017-01-07 04:33] LABS: ALLEN TEST YES; BE 5.7 mmoll (-3.0-3.0); BLOOD TYPE ARTERIAL; DRAW SITE R RADIAL; METHB 1.3 % (0.0-1.5); O2(CT) 17.1 mL/dL (15.0-23.0); PO2(98.6) 85 mmHg (60-100); SAMPLE BLOOD; THB 12.8 g/dL (11.5-17.4); pH(98.6) 7.36 (7.35-7.45)
[2017-01-07 04:34] LABS: MODALITY CANNULA; PCO2(98.6) 58 mmHg (35-45)
[2017-01-07 04:38] LABS: HEMATOCRIT 36.6 % (42.0-52.0); HEMOGLOBIN 11.9 g/dL (14.0-18.0); LYMPH# 0.35 X1000 (1.2-3.4); LYMPH% 5.9 % (20.5-51.1); MANUAL DIFF NEEDED? YES; MCH 28.5 PG (27-31); MCHC 32.5 g/dL (33-37); MCV 87.8 FL (81-99); MONO# 0.25 X1000 (0.11-0.59); MONO% 4.2 % (1.7-9.3); MPV 10.7 FL (7.4-10.4); NEUT% 89.9 % (42.2-75.2); PLT 134 X1000 (130-400); RBC 4.17 XMIL (4.7-6.1)
[2017-01-07 04:50] LABS: ALBUMIN 3.1 g/dL (3.5-5.0); CALCIUM 8.3 mg/dL (8.8-10.2); MAGNESIUM 2.4 mg/dL (1.5-2.7); POTASSIUM 4.1 mmol/L (3.5-5.1); TOTAL BILIRUBIN 0.48 mg/dL (0.20-1.00)
[2017-01-07 04:53] LABS: LYMPHS 8 % (21-51); MONO 2 % (1-9)
[2017-01-07] MEDS: ATIVAN IV PRN ×3 (05:29→19:45)
[2017-01-07] MEDS: MORPHINE IV PRN ×3 (05:29→21:58)
[2017-01-07] MEDS: NITROGLYCERIN TOP SCH ×4 (06:06→23:28)
[2017-01-07] MEDS: HALDOL IV PRN ×2 (07:36→19:45)
[2017-01-07] MEDS: MUCOMYST 20% INH SCH (07:46)
[2017-01-07] MEDS: ADVAIR 100/50 DISKUS INH SCH ×3 (07:47→22:46)
[2017-01-07] MEDS: SUBUTEX SL SCH ×3 (08:15→17:24)
[2017-01-07] MEDS: XANAX PO SCH ×2 (08:15→21:28)
[2017-01-07] MEDS: MIRALAX PO SCH (08:15)
--- NOTE | 2017-01-07 08:49 | Diag Imaging Result Document ---
PROCEDURE NAME: CHEST-PORTABLE - 01/07/2017 PORTABLE CHEST: Compared with 01/06/2017. FINDINGS: There is prominence of vascular markings similar to the previous exam. There is mild infiltrate or edema at the right base which appears essentially stable. There is a possible tiny right pleural effusion. There is no pneumothorax seen. Heart size is normal. IMPRESSION: Possible mild pulmonary edema, similar to the previous exam.
[2017-01-07] MEDS ORDERED: D5 1/2 NS 500 ML IV SCH ×3 (10:58→13:00)
[2017-01-07 11:21] LABS: INR 1.13; PTT 22.6 Seconds (22.0-36.0)
--- NOTE | 2017-01-07 11:38 | PROGRESS NOTE ---
DATE: 01/07/2017 SUBJECTIVE: The patient has no focal complaints. OBJECTIVE: Vital Signs: Blood pressure 163/91, heart rate of 85, respiratory rate of 17, temperature 98.2, 97% saturation on 4 L. Cardiovascular: Regular rate and rhythm. Pulmonary: Bilateral breath sounds. Clear to auscultation. Diminished at the bases. Neurologic: Poor, he is lethargic. He does not focus on anything. He seems just very confused. PROBLEM LIST: 1. Acute respiratory failure. Still somewhat tenuous but he seems to be improving. Pulmonary will continue to evaluate. Chest x-ray showed pulmonary edema but nothing massive so we will continue to follow. I think we could hydrate him a little bit. I think there was some concern over volume overload issues which is still obviously a concern but he clinically appears dry to me and then now his electrolytes are getting more abnormal, in any case. 2. Metabolic encephalopathy. Probably multifactorial. At this point, I think his greater issue is hypernatremia and azotemia so we will follow. 3. Acute kidney injury. He is somewhat improved. I am going to continue fluids and follow. 4. Pneumonia. He is on Zosyn. We will continue to monitor. 5. Atrial fibrillation with rapid ventricular response. That seems to be improved. His heart rate now has jumped up, if anything. I am going to put him back on his sotalol but we are just going to use a low dose and follow closely. The patient is still at high risk for decompensation so we will monitor in the ICU. He has very limited IV access so we will pursue PICC line and follow. cc: Kev Nick MD
[2017-01-07] MEDS ORDERED: NS 250 ML ONE (12:13)
[2017-01-07 12:26] LABS: ALBUMIN 3.1 g/dL (3.5-5.0); CALCIUM 8.5 mg/dL (8.8-10.2); POTASSIUM 4.3 mmol/L (3.5-5.1)
[2017-01-07] MEDS: 1/2 NS 1,000 ML IV SCH ×2 (13:10→19:45)
--- NOTE | 2017-01-07 14:35 | ECHO REPORT ---
ORDER DATE: 01/07/2017 2D ECHOCARDIOGRAM: ECHOCARDIOGRAPHIC MEASUREMENTS: 1. Interventricular septum 0.7. 2. Left ventricular posterior wall 0.7. 3. Diastolic diameter 4.7. 4. Left atrium 3.8. 5. Aorta 3.6. SUMMARY OF 2-DIMENSIONAL IMAGIN. Technically suboptimal study. Very poor acoustic window. Apical views were not obtained. Normal left ventricular cavity size. Estimated ejection fraction of 55-60%. Endocardium not well visualized in all views. 2. Aortic valve leaflets were trileaflet. Pulmonic valve was not well visualized. Mitral valve was normal. Tricuspid valve was normal. 3. Velocities across the aortic valve could not be obtained. There was trace mitral regurgitation. Velocities across the tricuspid valve could not be obtained. There is no pericardial effusion or obvious intracardiac mass or thrombus seen. cc: Jarret Perez MD
--- NOTE | 2017-01-07 14:46 | CONSULTATION ---
DATE OF CONSULTATION: 01/07/2017 REASON FOR CONSULTATION: Paroxysmal atrial fibrillation. REASON FOR ADMISSION: The patient is admitted with metabolic encephalopathy, respiratory failure, and aspiration pneumonia. HISTORY OF PRESENT ILLNESS: History could not be obtained from the patient as he is disoriented and restrained. History was obtained from the chart. The patient has a history of COPD, bipolar disorder, seizure disorder, and also has history of atrial flutter. He does take sotalol at home. Patient was admitted to the emergency room with altered mental status. REVIEW OF SYSTEMS: Could not be obtained from the patient. PAST MEDICAL HISTORY: 1. COPD. 2. Bipolar disorder. 3. Seizure disorder. 4. Substance abuse. 5. Atrial fibrillation, paroxysmal. 6. DVT right upper lower extremity in the past status post right upper extremity elbow amputation. 7. Gastroesophageal reflux disease. 8. Seizure disorder. 9. Hypertension. 10. Chronic pain syndrome. 11. Previous echocardiogram revealed preserved left ventricular systolic function. SOCIAL HISTORY: Per chart, smokes 1 pack of cigarettes a day. There is no history of alcohol abuse. There was a positive drug screen for amphetamines, benzodiazepines, and cannabinoids. ALLERGIES: Flexeril and tramadol. CURRENT MEDICATIONS: Include sotalol 40 b.i.d., polyethylene glycol 17, Zosyn, , nitroglycerin 1 inch q.6, morphine as needed, methylprednisone, lorazepam, hydralazine as needed, fludrocortisone and haloperidol IV, nebulizers. PHYSICAL EXAMINATION: Vital signs: Blood pressure 170/100. Cardiovascular: Jugular venous pressure could not be assessed. First and second heart sounds were heard. There was no S3 gallop. Respiratory System: Bilateral crepitations. Abdomen: Soft. Central nervous System: Patient is disoriented. Was restrained. LABORATORY EXAMINATION: Revealed a pH of 7.34, pCO2 61, bicarb 29.2, base excess 5.6. Sodium 153, potassium 4.3, BUN 65, creatinine 2.8. WBC 5.97, hemoglobin 11.9, hematocrit 36, platelet count of 134,000. Electrocardiogram revealed normal sinus rhythm. He was admitted with atrial fibrillation with rapid ventricular rate. Currently, he is in sinus rhythm with sinus tachycardia. ASSESSMENT AND PLAN: Mr. Henok Orellana is a 56-year-old gentleman who is admitted with altered mental status. Has history of chronic obstructive pulmonary disease, paroxysmal atrial fibrillation, has history of overdose of opiates and benzodiazepines in the past, is admitted with altered mental status. From a cardiac standpoint: 1. We will get an echocardiogram to assess cardiac and valvular function. 2. He is currently in sinus rhythm on sotalol at 40 mg twice daily. I will not make any changes to the medication as he has renal insufficiency which is acute. 3. He has fluid electrolyte imbalance with acute renal insufficiency and hypernatremia. Nephrology is following. 4. He is on antibiotics for aspiration pneumonia with history of chronic obstructive pulmonary disease. From a cardiac standpoint, previous echocardiogram was unremarkable. His cardiac enzymes are normal. His x-ray does not reveal acute ST-T changes to suggest ischemia or infarction. Would recommend continuing current plan of management. Thank you for the consult. cc: Jarret Perez MD
--- NOTE | 2017-01-07 16:40 | CONSULTATION ---
DATE OF CONSULTATION: 01/07/2017 Thank you very much for asking me to see this very unfortunate 56-year-old male, white. DIAGNOSES: 1. Acute respiratory failure. 2. Chronic obstructive pulmonary disease. 3. History of bipolar illness. 4. Chronic pain syndrome, opioid pain and benzodiazepine dependency. 5. Metabolic delirium. 6. Acute renal failure secondary to dehydration. RECOMMENDATIONS: He will be placed on inhaled beta agonist, supplemental oxygen, IV antibiotics. Will give him a pulse corticosteroids, monitor his gas exchange, work of breathing, follow closely along with you. HISTORY: This very unfortunate 56-year-old male white presented to the hospital on the with the onset of some delirium, wheezing and shortness of breath. He subsequently was volume resuscitated and treated for pneumonia. He was moved to the ICU last night with increasing delirium and hypercapnic respiratory failure, stabilized on oxygen and I am consulted to assist in his care. His mental status now is such that he only moans and answers questions with 1 word with no reliability. PAST MEDICAL HISTORY: Is positive for COPD, previous skull fracture, bipolar illness, DVT in the right upper extremity, GE reflux, seizure disorder, opioid and benzodiazepine dependency. REVIEW OF SYSTEMS: Except for the features mentioned above are negative for weight loss, night sweats, weakness or anorexia. No ENT symptoms other than mentioned, no eye symptoms of blindness, blurring, diplopia. No other cardiac or pulmonary symptoms other than mentioned. No GI symptoms other than mentioned above. No hematuria, polyuria, nocturia, dysuria, no joint or muscle pain stiffness, swelling, no skin rash, itch, bruises, no seizures, loss of consciousness or paralysis. Except for the features mentioned above all other symptoms on the review of systems are negative. SURGICAL HISTORY: Positive for a amputation the right upper extremity, right total hip replacement, splenectomy, he had liver laceration as well as orthopedic repair secondary to an accident. This was remote. FAMILY HISTORY: Is positive for bipolar illness as well as hypertension. PHYSICAL EXAM: Vital signs: This kind unfortunate man shows a blood pressure of 172/100 with pulse of 84, respirations of 18, temperature 98.4 degrees. HEENT: Reveals no thyromegaly or adenopathy. Pupils are equal and reactive. Extraocular muscles are intact. Neck: Supple. No bruits. No thyromegaly. No JVD. Chest: Reveals crackles in the right base with some prolongation in expiratory phase and forced expiratory wheezes. Cardiac Exam: Reveals a regular rhythm without an appreciable murmur. Abdomen: Soft, no hepatosplenomegaly. Extremities: Reveal no evidence of cyanosis. There is amputation of the right upper extremity. Neurologically: Moves all 4. Is lethargic and moans. DIAGNOSTIC DATA: His chest radiograph shows modest cardiomegaly, there is orthopedic hardware in the clavicle, there is bilateral infiltrates consistent with aspiration or edema. The white count is 7900 with hemoglobin 11.9, hematocrit 36.6, platelets 134,000. The ABG shows a 7.36 pH with a 58 CO2 and 85 O2. The sodium is 153, potassium 4.3, chloride 109, CO2 32, BUN 65, creatinine 2.8 and glucose of 153.
[2017-01-07] MEDS: BETAPACE PO SCH (21:27)
[2017-01-08] MEDS: ZOSYN 2.25 GM/NS 2.25 GM/50 ML IVPB IV SCH ×4 (02:17→19:39)
[2017-01-08] MEDS: DUONEB (A & A) INH SCH ×6 (03:52→22:59)
[2017-01-08] MEDS: MORPHINE IV PRN ×4 (04:05→19:40)
[2017-01-08] MEDS: ATIVAN IV PRN ×3 (04:15→16:52)
[2017-01-08 04:26] LABS: ALLEN TEST YES; BE 6.6 mmoll (-3.0-3.0); BLOOD TYPE ARTERIAL; DRAW SITE R RADIAL; METHB 1.3 % (0.0-1.5); O2(CT) 19.4 mL/dL (15.0-23.0); PO2(98.6) 82 mmHg (60-100); SAMPLE BLOOD; SAO2 97.6 % (95.0-100.0); THB 14.6 g/dL (11.5-17.4); pH(98.6) 7.31 (7.35-7.45)
[2017-01-08 04:27] LABS: MODALITY CANNULA; PCO2(98.6) 71 mmHg (35-45)
[2017-01-08 05:03] LABS: HEMATOCRIT 35.2 % (42.0-52.0); HEMOGLOBIN 11.3 g/dL (14.0-18.0); LYMPH# 0.32 X1000 (1.2-3.4); LYMPH% 5.5 % (20.5-51.1); MANUAL DIFF NEEDED? YES; MCH 28.6 PG (27-31); MCHC 32.1 g/dL (33-37); MCV 89.1 FL (81-99); MONO# 0.22 X1000 (0.11-0.59); MONO% 3.8 % (1.7-9.3); MPV 10.8 FL (7.4-10.4); NEUT% 90.7 % (42.2-75.2); PLT 142 X1000 (130-400); RBC 3.95 XMIL (4.7-6.1)
[2017-01-08 05:11] LABS: BANDS 6 % (0-1); LYMPHS 4 % (21-51); MONO 6 % (1-9)
[2017-01-08 05:14] LABS: CALCIUM 8.5 mg/dL (8.8-10.2); POTASSIUM 4.2 mmol/L (3.5-5.1)
[2017-01-08] MEDS: 1/2 NS 1,000 ML IV SCH (05:21)
[2017-01-08] MEDS: NITROGLYCERIN TOP SCH ×3 (05:21→16:35)
[2017-01-08] MEDS: HALDOL IV PRN ×4 (05:24→19:40)
[2017-01-08] MEDS: SOLU-MEDROL IV SCH ×3 (06:00→21:00)
--- NOTE | 2017-01-08 06:19 | Diag Imaging Result Document ---
PROCEDURE NAME: CHEST-PORTABLE - 01/08/2017 PORTABLE CHEST: COMPARISON: Compared to 01/07/2017. FINDINGS: A left-sided PICC line has been placed. This overlies the distal superior vena cava. There are bilateral infiltrates/vascular distention. The heart is not enlarged. The lung bases are not included. Overall appearance is slightly worse than on the prior exam. There has been prior surgery at each clavicle. IMPRESSION: Slight worsening in the bilateral infiltrates/pulmonary edema.
--- NOTE | 2017-01-08 06:23 | EKG Report ---
Test Performed on : 01/06/2017 4:58:45 PM Test Reason : No Order in [employer] Blood Pressure : / mmHG Vent. Rate : 050 BPM Atrial Rate : 050 BPM P-R Int : 140 ms QRS Dur : 076 ms QT Int : 432 ms P-R-T Axes : 067 081 088 degrees QTc Int : 393 ms Sinus bradycardia. with marked sinus arrhythmia. Otherwise normal ECG When compared with ECG of 01-JAN-2017 09:12, premature atrial complexes. are no longer present Vent. rate has decreased BY 35 BPM Confirmed by Justin DOMINGUEZ, Zev Paige ([id number]) on 01/08/2017 8:58:38 AM
[2017-01-08] MEDS: ADVAIR 100/50 DISKUS INH SCH ×2 (08:21→20:06)
[2017-01-08] MEDS: BETAPACE PO SCH ×2 (08:38→20:56)
[2017-01-08] MEDS: MIRALAX PO SCH (08:38)
[2017-01-08] MEDS: SUBUTEX SL SCH ×3 (08:38→16:38)
[2017-01-08] MEDS: XANAX PO SCH ×2 (08:38→20:57)
--- NOTE | 2017-01-08 10:46 | PROGRESS NOTE ---
DATE: 01/08/2017 TIME SEEN: 0730. SUBJECTIVE: Mr. Orellana is resting quietly in bed. He has no acute distress. His skin is warm and dry. OBJECTIVE: His most recent vital signs: Temperature 98 degrees, blood pressure 161/86, heart rate is 83, respirations are 12. He is on 3 L nasal cannula. Last recorded saturation is 100%. He has had 2750 In. He has had 1500 out. LABORATORY DATA: Sodium 156, potassium 4.2, chloride 111, CO2 of 32. BUN 60. Creatinine 2.6, glucose 142. Anion gap 13, calcium 8.5. BNP 24,792. White count 5.78. Hemoglobin 11.3, hematocrit 35.2, with a platelet count of a 142,000. ABGs: pH 7.31, CO2 of 71 , PO2 of 82, bicarb 30, lactate 0.90 on 4 L nasal cannula. PHYSICAL EXAMINATION: This is a 56-year-old white male. He is currently resting in bed. He moans and groans. He does not make eye contact. Eyes are open. His skin is warm and dry. HEENT: Normocephalic, atraumatic. Conjunctiva is pale. He has ESTRADA. Mucous membranes are dry. Neck is supple. Trachea midline. No JVD. Cardiovascular: He has regular rate and rhythm. No murmur or gallop appreciated. Lungs are clear to auscultation anteriorly. Equal excursion. Abdomen is soft, nontender. Positive bowel sounds. Extremities: Continues with 2+ lower extremity edema, up into the hip region. No clubbing or cyanosis. Neurologic: As mentioned above. The patient is not able to participate with exam. He remains in a 3- point restraint. ASSESSMENT AND PLAN: 1. Acute kidney injury. His creatinine continues to improve slowly. BUN also continues to respond to IV fluids. No indications for any changes. He has adequate urine out. 2. Electrolytes. Patient is hypernatremic. We will change his normal saline to D5W, and we will continue to monitor. 3. Acid-base balance. This is stable. 4. Anemia. This is close to target. 5. Altered mental status. This continues with no improvement with restraints in place with primary care team following. I would to thank you for allowing us to follow with this patient. Seen, data reviewed, discussed with Martir Melton on 01/08/17. I agree with the above assessment and plan of care. rg Dictated by DIONNE Marinelli for Bill Villagran MD cc: DIONNE Marinelli MD [facility]
[2017-01-08] MEDS: D5W 1,000 ML IV SCH ×2 (10:54→19:39)
--- NOTE | 2017-01-08 12:43 | PROGRESS NOTE ---
DATE: 01/08/2017 SUBJECTIVE: The patient is still very agitated. He is sitting up in bed. Does not maintain eye contact. He is extremely disoriented. OBJECTIVE: Vital Signs: Blood pressure 161/86, heart rate of 84, respiratory rate 14, temperature 98, 100% on 3 L. Cardiovascular: Regular rate and rhythm. Pulmonary: Bilateral breath sounds. Clear to auscultation. GI: Soft, nontender, nondistended. Bowel sounds are positive. LABORATORY DATA: White count is 5. Hemoglobin and hematocrit 11 and 35, platelets 142. Chemistries: BUN and creatinine is 60 and 2.6. Some improvement overall the last several days. BNP is very high at 24,792. Chest x-ray today showed bilateral infiltrates and pulmonary edema. An echo that was pretty much unremarkable. EF was normal. PROBLEM LIST: 1. Metabolic encephalopathy. Could be related to drug overdose, possibly some withdrawal. At this point, he is still getting his Suboxone, and I think he is intermittently getting Ativan, so I find it less likely that this is related to that. He does have some risk factors for stroke because he has got atrial fibrillation. So I will progress with an MRI, just to look for other etiologies. His head CT I think had been unremarkable. 2. Acute respiratory failure. He is continuing on his treatments. Pulmonary is following. He is on breathing treatments, antibiotics, steroids and wean the steroids somewhat. 3. Acute kidney injury, slow improvement. Continue fluids. 4. Pneumonia. He is empirically on Zosyn. Day 5. We will continue to follow. 5. Hypertension. Continue to monitor very closely. DISPOSITION: Pending resolution of his multiple issues. cc: Kev Nick MD
[2017-01-08] MEDS ORDERED: PHENOBARBITAL IV PRN (20:30)
[2017-01-08] MEDS ORDERED: VALIUM IV ONE (20:30)
[2017-01-08 20:49] LABS: ALLEN TEST YES; BE 8.8 mmoll (-3.0-3.0); BLOOD TYPE ARTERIAL; DRAW SITE R RADIAL; METHB 1.8 % (0.0-1.5); O2(CT) 14.6 mL/dL (15.0-23.0); PO2(98.6) 76 mmHg (60-100); SAMPLE BLOOD; pH(98.6) 7.33 (7.35-7.45)
[2017-01-08 20:51] LABS: MODALITY CANNULA; PCO2(98.6) 70 mmHg (35-45)
[2017-01-09] MEDS: NITROGLYCERIN TOP SCH ×4 (00:04→17:05)
[2017-01-09] MEDS ORDERED: PHENOBARBITAL IV ONE (02:08)
[2017-01-09] MEDS: ZOSYN 2.25 GM/NS 2.25 GM/50 ML IVPB IV SCH ×4 (02:11→19:24)
[2017-01-09] MEDS: MORPHINE IV PRN ×3 (03:40→18:58)
[2017-01-09] MEDS: HALDOL IV PRN ×3 (03:46→18:58)
[2017-01-09] MEDS: DUONEB (A & A) INH SCH ×6 (03:58→23:23)
[2017-01-09 04:53] LABS: ALLEN TEST YES; BE 10.4 mmoll (-3.0-3.0); BLOOD TYPE ARTERIAL; DRAW SITE R RADIAL; PO2(98.6) 73 mmHg (60-100); SAMPLE BLOOD; pH(98.6) 7.41 (7.35-7.45)
[2017-01-09 04:54] LABS: MODALITY CANNULA; PCO2(98.6) 59 mmHg (35-45)
[2017-01-09] MEDS: SOLU-MEDROL IV SCH ×2 (05:15→17:09)
[2017-01-09] MEDS: D5W 1,000 ML IV SCH ×2 (05:23→17:05)
[2017-01-09 05:47] LABS: EOS# 0.01 X1000 (0.0-0.7); EOS% 0.2 % (0.0-10.0); HEMATOCRIT 33.5 % (42.0-52.0); HEMOGLOBIN 10.7 g/dL (14.0-18.0); LYMPH# 0.27 X1000 (1.2-3.4); LYMPH% 4.7 % (20.5-51.1); MANUAL DIFF NEEDED? YES; MCH 28.5 PG (27-31); MCHC 31.9 g/dL (33-37); MCV 89.3 FL (81-99); MONO# 0.36 X1000 (0.11-0.59); MONO% 6.3 % (1.7-9.3); MPV 11.1 FL (7.4-10.4); NEUT% 88.8 % (42.2-75.2); PLT 149 X1000 (130-400); RBC 3.75 XMIL (4.7-6.1)
[2017-01-09 05:58] LABS: POTASSIUM 3.9 mmol/L (3.5-5.1)
[2017-01-09] MEDS: ATIVAN IV PRN ×3 (06:52→21:50)
[2017-01-09 07:06] LABS: LYMPHS 2 % (21-51); MONO 6 % (1-9)
[2017-01-09] MEDS: MIRALAX PO SCH (08:23)
--- NOTE | 2017-01-09 08:23 | Diag Imaging Result Document ---
PROCEDURE NAME: CHEST-1 VIEW - 01/09/2017 PORTABLE CHEST X-RAY: COMPARISON: 01/08/2017. FINDINGS: Stable PICC line. Stable diffuse bilateral infiltrates and pulmonary vascular congestion. No new infiltrates. IMPRESSION: No change from prior.
[2017-01-09] MEDS: XANAX PO SCH ×2 (08:24→20:40)
[2017-01-09] MEDS: BETAPACE PO SCH (08:24)
[2017-01-09] MEDS: ADVAIR 100/50 DISKUS INH SCH ×2 (08:28→19:44)
[2017-01-09] MEDS: SUBUTEX SL SCH ×3 (10:00→17:06)
--- NOTE | 2017-01-09 11:17 | Diag Imaging Result Document ---
PROCEDURE NAME: MRI BRAIN W/O CONTRAST - 01/08/2017 MRI BRAIN WITHOUT CONTRAST: COMPARISON: None available. FINDINGS: There is no evidence of acute infarct. On a majority of the sequences, there is excessive motion artifact. This may somewhat limit diagnostic quality. However, there is no discrete intracranial mass, mass effect, or intracranial hemorrhage. There is no evidence of hydrocephalus. The white matter signal is grossly unremarkable. The surrounding soft tissues and bony structures are essentially unremarkable. IMPRESSION: Somewhat limited study due to excessive patient motion. However, there is no evidence of acute pathology.
[2017-01-09] MEDS ORDERED: CARDIZEM IV ONE (13:20)
[2017-01-09] MEDS ORDERED: CARDIZEM 100 MG/NS 100 MG/100 ML IVPB IV SCH (13:22)
--- NOTE | 2017-01-09 13:36 | EKG Report ---
Test Performed on : 01/09/2017 1:23:09 PM Test Reason : AFIB RVR Blood Pressure : / mmHG Vent. Rate : 168 BPM Atrial Rate : 187 BPM P-R Int : 000 ms QRS Dur : 068 ms QT Int : 268 ms P-R-T Axes : 000 076 149 degrees QTc Int : 448 ms Atrial fibrillation. with rapid ventricular response. ST depression, consider subendocardial injury Nonspecific T wave abnormality Abnormal ECG When compared with ECG of 06-JAN-2017 16:58, Atrial fibrillation. has replaced Sinus rhythm. inferior-lateral sT depression may be rate related. Confirmed by Justin DOMINGUEZ, Zev Paige ([id number]) on 01/10/2017 5:49:32 PM
--- NOTE | 2017-01-09 13:53 | PROGRESS NOTE ---
DATE: 01/09/2017 SUBJECTIVE: The patient has no focal complaints because he is pretty much sedated. When he is not sedated he is agitated, is not appropriate, and is not oriented. He does answer questions but he is not appropriate. OBJECTIVE: Vital signs: Blood pressure 141/70, heart rate of 55, respiratory rate 9, temperature 97.8 degrees. Cardiovascular: Regular rate and rhythm. Pulmonary: Bilateral breath sounds. Clear to auscultation. GI: Soft, nontender, nondistended. Bowel sounds are positive. LABORATORY STUDIES: White count 5, hemoglobin and hematocrit are 10 and 33, platelets 149,000. Chemistries: BUN and creatinine are down to 58 and 2.4. Sodium is still high at 152 with a chloride of 110. BNP still elevated at 31,323. Chest x-ray shows diffuse bilateral pulmonary infiltrates and pulmonary vascular congestion. MRI was limited because of artifact but did not show any acute changes. PROBLEM LIST: 1. Metabolic encephalopathy. Still really no improvement. There is some concern over possible withdrawal syndrome. He has been here for 8 days and has not improved at all. It is certainly possible but I think we have to entertain other possibilities. We have looked at a B12, folate, TSH, cortisol; all of those look okay. Will probably check an ammonia level just to be fair but his liver enzymes I think have been fairly normal. I am going to get Dr. Engel's opinion, although he has a nonfocal exam and imaging has been negative thus far. Certainly could be some subclinical seizures. 2. Acute respiratory failure, chronic obstructive pulmonary disease exacerbation. He is on breathing treatments. Pulmonary is following. At this time he is stable. 3. Acute kidney injury. This is still a persistent issue. Also may be contributing to his encephalopathy. Follow I's and O's. Continue hydration. 4. Hypernatremia. He is still very hypernatremic. He has been switched per renal service to D5 and has had some improvement so we will continue to monitor. 5. Anemia is stable. So, we will continue to follow very closely. cc: Kev Nick MD
--- NOTE | 2017-01-09 14:36 | PROGRESS NOTE ---
DATE: 01/09/2017 TIME SEEN: 0755 SUBJECTIVE: Mr. Orellana is currently resting in bed. He remains weak. He is in no acute distress. His skin is warm and dry. PHYSICAL EXAMINATION: Vital Signs: His most recent vital signs were temperature 98.3 degrees, blood pressure 141/70, heart rate 57, respirations 14. He is on 2L nasal cannula and last recorded saturation is 93%. He has had 2600 in, 1475 out. General: This is a 56-year-old white male. He is currently resting in bed. He continues to moan and groan to stimuli. He does not make eye contact, though he does open his eyes to verbal stimuli. Skin: Warm and dry. HEENT: Normocephalic, atraumatic. Conjunctivae pale. He has ESTRADA, though these are sluggish today. Mucous membranes are dry. Neck: Supple. Trachea midline. No JVD. Cardiovascular: Regular rate and rhythm on the monitor. He is without murmur or gallop today. Lungs: Clear to auscultation anterior with faint inspiratory wheezes, equal excursion on O2. Abdomen: Soft, nontender. Positive bowel sounds. Extremities: Continues with 2+ lower extremity edema up into the hip region. No clubbing or cyanosis. Neurological: As mentioned above. He remains in 3- point restraint. LABORATORIES: Sodium 152, potassium 3.9, chloride 110, CO2 of 30, BUN 58, creatinine 2.4, glucose 195, anion gap 12, calcium 8. White count 5.76, hemoglobin 10.7, hematocrit 33.5 , with a platelet count of 149,000. ABGs were pH 7.41, CO2 of 59, PO2 of 73, bicarbonate 33. Lactate is 1.3. ASSESSMENT AND PLAN: 1. Acute kidney injury. His creatinine does continue to slowly improve. It is down to 2.4 today. No indications for any changes. He is making adequate urine. 2. Electrolytes. Patient continues hypernatremic. We continue with D5W at 100 mL an hour. We will continue to monitor. 3. Acid-base balance. This remains stable. 4. Anemia. This is close to target. 5. Altered mental status. Patient continues restraints with primary care following. I would to thank you for allowing us to follow with this patient. Seen, data reviewed, discussed with Martir Melton on 01/09/17. I agree with the above assessment and plan of care. rg Dictated by DIONNE Marinelli for Bill Villagran MD cc: DIONNE Marinelli MD [facility]
[2017-01-09 15:49] LABS: MAGNESIUM 2.3 mg/dL (1.5-2.7); POTASSIUM 3.6 mmol/L (3.5-5.1)
--- NOTE | 2017-01-09 17:04 | CONSULTATION ---
DATE OF CONSULTATION: 01/09/2017 PATIENT LOCATION: ICU bed 7. HISTORY OF PRESENT ILLNESS: Mr. Orellana is 56 years old and he was admitted 9 days ago with obtundation, nonfocal neurologic exam. He has had reported agitated confusion, disorientation. Review of hospital chart shows no reported focal neurologic deficit. Initial noncontrast CT of the head was unremarkable. Brain MRI without contrast yesterday showed motion artifact but otherwise unremarkable. His admission drug screen was positive for amphetamine , benzodiazepine, cannabis but negative for opiates. Home medicines include buprenorphine, alprazolam, no amphetamines. He is reported to continue smoking and using ethanol. Serum ethanol level was 0 on admission. There is reported to be seizure disorder in the past history. I do not have any records to document that. His home medication list includes Lyrica but nothing else for seizure control. He has been afebrile. Over the last 3 days, systolic blood pressures have ranged 120s to 190s. Heart rate has ranged 110s to 40s. Lab showed sodium initially 130, gradually rising to 152 now. Initial CK was 3, 874 and that gradually came down to normal. PHYSICAL EXAMINATION: On exam now, Mr. Orellana is supine, restrained at the feet and left wrist. The right arm is amputated mid forearm. He was a little bit difficult to wake up but when awake was moaning and grumbling. His speech is too dysarthric for me to understand. He did not follow commands. He did not count fingers. He did blink from visual threat approaching from the left and from the right. He turned his head spontaneously left and right. There is no meningismus. Extraocular movements are full. Facial motility seems symmetric. Tongue is midline. Tone is equal in the limbs. Plantar response is extensor bilaterally. 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 Negative imaging is reassuring. I do not have a definite explanation for his encephalopathy. I suspect this is multifactorial, probably mostly related to medications/substances. I do not have any documentation of his reported past seizure disorder. Current appearance does not look like a subclinical seizure but postictal state could produce similar appearance. I think it would be reasonable to get an EEG when practical. Our lab reports that buprenorphine should show up as an opiate on our screen here, so he may have been missing buprenorphine doses prior to admission. Buprenorphine half life can be very long, but his current clinical appearance does not suggest opiate withdrawal. I do not have any urgent suggestion. Thanks for asking me to see Mr. Orellana. cc: MD EILEEN Contreras III
[2017-01-09] MEDS: CARDIZEM 100 MG/NS 100 MG/100 ML IVPB IV SCH (17:14)
[2017-01-09 18:20] LABS: CK INDEX 0.8 (0.0-2.5); CK-MB 2.57 ng/mL (0.0-5.0)
[2017-01-09] MEDS ORDERED: VALIUM IV ONE (20:40)
[2017-01-10] MEDS: NITROGLYCERIN TOP SCH ×5 (00:22→23:33)
[2017-01-10] MEDS: ZOSYN 2.25 GM/NS 2.25 GM/50 ML IVPB IV SCH ×4 (02:17→19:58)
[2017-01-10] MEDS: D5W 1,000 ML IV SCH ×2 (02:17→13:09)
[2017-01-10] MEDS: ATIVAN IV PRN ×3 (02:20→17:29)
[2017-01-10] MEDS: DUONEB (A & A) INH SCH ×6 (03:32→23:06)
[2017-01-10 04:10] LABS: ALLEN TEST YES; BE 11.2 mmoll (-3.0-3.0); BLOOD TYPE ARTERIAL; DRAW SITE L RADIAL; METHB 1.3 % (0.0-1.5); O2(CT) 13.6 mL/dL (15.0-23.0); PO2(98.6) 52 mmHg (60-100); SAMPLE BLOOD; SAO2 91.8 % (95.0-100.0); THB 10.9 g/dL (11.5-17.4); pH(98.6) 7.38 (7.35-7.45)
[2017-01-10 04:11] LABS: MODALITY CANNULA; PCO2(98.6) 65 mmHg (35-45)
[2017-01-10] MEDS: MORPHINE IV PRN ×4 (04:19→19:58)
[2017-01-10] MEDS: HALDOL IV PRN ×2 (04:20→21:38)
[2017-01-10] MEDS: SOLU-MEDROL IV SCH ×2 (05:02→17:35)
[2017-01-10 05:21] LABS: EOS# 0.01 X1000 (0.0-0.7); EOS% 0.1 % (0.0-10.0); HEMATOCRIT 34.8 % (42.0-52.0); HEMOGLOBIN 11.1 g/dL (14.0-18.0); IMM GRAN# 0.02 X1000 (0.0-0.04); IMM GRAN% 0.3 % (0.0-0.5); LYMPH% 5.1 % (20.5-51.1); MANUAL DIFF NEEDED? YES; MCH 28.2 PG (27-31); MCHC 31.9 g/dL (33-37); MCV 88.5 FL (81-99); MONO# 0.49 X1000 (0.11-0.59); MONO% 6.3 % (1.7-9.3); MPV 10.6 FL (7.4-10.4); NEUT% 88.2 % (42.2-75.2); PLT 146 X1000 (130-400); RBC 3.93 XMIL (4.7-6.1)
[2017-01-10 05:42] LABS: CALCIUM 8.4 mg/dL (8.8-10.2); POTASSIUM 3.3 mmol/L (3.5-5.1)
[2017-01-10] MEDS ORDERED: VALIUM IV ONE ×2 (05:56→05:57)
[2017-01-10] MEDS: ADVAIR 100/50 DISKUS INH SCH ×2 (07:49→19:27)
[2017-01-10 08:05] LABS: LYMPHS 8 % (21-51); MONO 6 % (1-9)
--- NOTE | 2017-01-10 08:15 | Diag Imaging Result Document ---
PROCEDURE NAME: CHEST-1 VIEW - 01/10/2017 SINGLE FRONTAL RADIOGRAPH OF THE CHEST: COMPARISON: 01/09/2017. FINDINGS: Left PICC line is stable. Diffuse infiltrates bilaterally in pulmonary venous congestion are unchanged. No new consolidation is identified. Cardiac silhouette is stable. IMPRESSION: Stable chest.
--- NOTE | 2017-01-10 09:18 | PROGRESS NOTE ---
DATE: 01/10/2017 Mr. Orellana is a little bit more alert. His attention is a little bit more consistent today. He did hold up 2 fingers to command. He did count fingers but he did not continue consistent attention so that I could test visual field thoroughly. He moved all limbs and tone seems equal in the limbs. There is no meningismus. He said a few understandable words today, improved since yesterday. I do not have any new suggestion from a neurologic standpoint. This seems to be a global encephalopathy with some improvement since yesterday. Thanks for asking me to see Mr. Orellana. cc: Janneth Engel III, MD MTDD
[2017-01-10] MEDS: SUBUTEX SL SCH ×3 (09:21→17:23)
[2017-01-10] MEDS: MIRALAX PO SCH (09:21)
[2017-01-10] MEDS ORDERED: PRECEDEX 200 MICROGM in NS 48 ML IV SCH (11:15)
--- NOTE | 2017-01-10 11:42 | EEG REPORT ---
DATE: 01/09/2017 EEG NUMBER: [id number] COMMENT: This is a digitally recorded EEG on a 56-year-old patient with apparent global encephalopathy, possible previous seizure history. FINDINGS: Some movement artifact is present but does not hinder interpretation. Background contains polymorphic and rhythmic theta frequencies at 4-6 hertz symmetrically across the hemispheres. There is occasional slowing into the delta range frontally. There is posterior rhythm at 8 hertz with uncertain reactivity to eye opening. There was no definite variation to correlate with spontaneous drowsing or sleep. Activating procedures were not done. No definite epileptiform discharge was identified. INTERPRETATION: Abnormal electroencephalogram because of generalized slowing. CORRELATION: This is indicative of a diffuse encephalopathy and is nonspecific. The absence of epileptiform discharges on a single EEG does not exclude a clinical diagnosis of seizures, but there is nothing on this record to suggest the presence of subclinical seizures. cc: Janneth Engel III, MD
[2017-01-10] MEDS ORDERED: STERILE WATER INJ. INJ PRN (12:39)
[2017-01-10] MEDS: CARDIZEM 100 MG/NS 100 MG/100 ML IVPB IV SCH (13:10)
--- NOTE | 2017-01-10 14:21 | PROGRESS NOTE ---
DATE: 01/10/2017 SUBJECTIVE: He is about the same. OBJECTIVE: Vital Signs: Blood pressure 121/67, heart rate 135, respiration 31, afebrile. Intake and output: Intake. 2.7 L. Output 1.8 L. General: No acute distress. Skin: Warm and dry. HEENT: Conjunctivae are pink. Neck: Neck veins are not visible. Heart: Regular. Lungs: Have equal breath sounds with wheezes and prolonged expiration. Abdomen: Soft, nontender. Bowel sounds present. Extremities: Have 1+ edema. No clubbing or cyanosis. LABORATORY DATA: Sodium 148, potassium 3.3, chloride 105, bicarbonate 33, BUN 48, creatinine 2.1. IMPRESSIONS: 1. Acute kidney injury. Progressive improvement. Good urine output. 2. Hypernatremia. Improving with D5. No change. cc: Bill Villagran MD
--- NOTE | 2017-01-10 18:44 | PROGRESS NOTE ---
DATE: 01/10/2017 SUBJECTIVE: The patient is feeling better. Still a little confused. No fever. No chills. No nausea, vomiting, or diarrhea. OBJECTIVE: Vital signs: Blood pressure is 139/78, pulse of 91, respiration 15, temperature 97.4 degrees, sat 100% on the Venturi mask 50% FiO2. General appearance: Thin white male, in no acute distress. He is still a little confused. HEENT: Anicteric. Clear conjunctivae. Neck: Supple. No JVD. No bruit. Cardiovascular: S1, S2. Normal rate and rhythm. No murmurs, rubs, or gallops. Pulmonary: Clear to auscultation bilaterally. GI: Soft, nontender, nondistended. Normoactive bowel sounds. Musculoskeletal: No clubbing, cyanosis, or edema. LABORATORY: White count 7.82, hemoglobin 11.1, hematocrit 34.8, platelets of 146,000. Chemistry: Sodium 148, potassium 3.3, chloride 105, bicarb 33, BUN 48, creatinine 2.1. Glucose 174. His chest x-ray showed at the PICC line with diffuse infiltrates bilaterally. No new consolidations. MRI of the brain that was done on the showed no acute pathology but very poor imagings. Echocardiogram was also done on the showed an EF of 55-60%. ASSESSMENT AND PLAN: This is a 56-year-old white male, admitted to the hospital for metabolic encephalopathy. 1. Metabolic encephalopathy improving slowly possibly secondary to medication and acute renal failure. Nephrology and Neurology are following. MRI was negative. 2. Acute respiratory failure. Improving. Has history of COPD in acute exacerbation. We will continue IV steroid. 3. Acute renal failure is improving. 4. Anemia. We will continue to follow. CODE STATUS: The patient is a full code.
[2017-01-10] MEDS: GEODON IM PRN (23:33)
[2017-01-11] MEDS: D5W 1,000 ML IV SCH ×2 (01:11→12:23)
[2017-01-11] MEDS: MORPHINE IV PRN ×3 (01:14→21:25)
[2017-01-11] MEDS: ZOSYN 2.25 GM/NS 2.25 GM/50 ML IVPB IV SCH ×2 (03:00→09:39)
[2017-01-11] MEDS: DUONEB (A & A) INH SCH ×6 (03:32→22:56)
[2017-01-11] MEDS: APRESOLINE IV PRN ×3 (04:27→21:48)
[2017-01-11 04:34] LABS: ALLEN TEST YES; BE 13.1 mmoll (-3.0-3.0); BLOOD TYPE ARTERIAL; DRAW SITE R RADIAL; METHB 1.5 % (0.0-1.5); O2(CT) 15.5 mL/dL (15.0-23.0); PO2(98.6) 100 mmHg (60-100); SAMPLE BLOOD; SAO2 98.3 % (95.0-100.0); THB 11.5 g/dL (11.5-17.4); pH(98.6) 7.39 (7.35-7.45)
[2017-01-11 04:38] LABS: MODALITY VENTIMASK; PCO2(98.6) 67 mmHg (35-45)
[2017-01-11] MEDS: ATIVAN IV PRN (04:58)
[2017-01-11] MEDS: NITROGLYCERIN TOP SCH ×4 (04:59→21:26)
[2017-01-11] MEDS: SOLU-MEDROL IV SCH ×2 (05:02→17:28)
[2017-01-11 07:08] LABS: HEMATOCRIT 35.4 % (42.0-52.0); HEMOGLOBIN 11.4 g/dL (14.0-18.0); IMM GRAN# 0.03 X1000 (0.0-0.04); IMM GRAN% 0.3 % (0.0-0.5); LYMPH# 0.35 X1000 (1.2-3.4); MANUAL DIFF NEEDED? YES; MCHC 32.2 g/dL (33-37); MONO# 0.34 X1000 (0.11-0.59); MONO% 3.9 % (1.7-9.3); MPV 11.4 FL (7.4-10.4); NEUT% 91.8 % (42.2-75.2); PLT 145 X1000 (130-400); RBC 4.07 XMIL (4.7-6.1)
[2017-01-11 07:35] LABS: LYMPHS 2 % (21-51); MONO 8 % (1-9)
[2017-01-11] MEDS: ADVAIR 100/50 DISKUS INH SCH ×2 (07:36→19:55)
[2017-01-11 07:37] LABS: CALCIUM 8.3 mg/dL (8.8-10.2); POTASSIUM 3.6 mmol/L (3.5-5.1)
--- NOTE | 2017-01-11 08:28 | Diag Imaging Result Document ---
PROCEDURE NAME: CHEST-1 VIEW - 01/11/2017 SINGLE FRONTAL RADIOGRAPH OF THE CHEST: COMPARISON: 01/10/2017. FINDINGS: The left PICC line is in stable position. Diffuse bilateral infiltrates and pulmonary venous congestion appeared to have worsened somewhat during the interval likely representing worsening pulmonary edema plus or minus pneumonia. Cardiac silhouette is stable. IMPRESSION: Interval worsening of bilateral infiltrates as described.
[2017-01-11] MEDS: CARDIZEM 100 MG/NS 100 MG/100 ML IVPB IV SCH ×2 (09:39→23:42)
[2017-01-11] MEDS: SUBUTEX SL SCH ×3 (09:39→16:38)
[2017-01-11] MEDS: MIRALAX PO SCH (09:40)
[2017-01-11] MEDS ORDERED: ATIVAN IV PRN (10:15)
[2017-01-11] MEDS: LEVAQUIN 750 MG/D5W 750 MG/150 ML IVPB IV SCH (11:25)
[2017-01-11] MEDS: HALDOL IV PRN ×3 (12:23→21:41)
--- NOTE | 2017-01-11 12:34 | PROGRESS NOTE ---
DATE: 01/11/2017 Mr. Orellana seems more alert, but less attentive today. He was moving all limbs spontaneously, grumbling, speaking definitely more clearly, and I could understand him better today than yesterday. He was not attentive to my request for finger counting to test visual martinez. He was not attentive to my request for specific voluntary muscle contraction to test limb power. He has full lateral eye movement. There is not meningismus. I do not have any new thoughts or new suggestions today from a neurologic standpoint. I will continue to follow Mr. Orellana. cc: Janneth Engel III, MD
--- NOTE | 2017-01-11 12:56 | Diag Imaging Result Document ---
PROCEDURE NAME: CHEST/ABD TUBE PLACEMENT - 01/11/2017 PORTABLE CHEST X-RAY AT 1125 HOURS: COMPARISON: 0520 hours. FINDINGS: There is a nasogastric tube in good position with the tip in the stomach. IMPRESSION: Nasogastric tube in the stomach.
--- NOTE | 2017-01-11 12:57 | PROGRESS NOTE ---
DATE: 01/11/2017 SUBJECTIVE: Once again, I just get groans. No verbalization. OBJECTIVE: Vital Signs: Blood pressure 188/87, heart rate 72, respirations 15, afebrile. Intake 2.7 L. Output 1.9 L. General Appearance: No acute distress. Skin: Warm and dry. Eyes: Conjunctivae are pink. Neck: Neck veins are not visible. Heart: Regular. Lungs: Have prolonged expiration with wheezes. Abdomen: Soft, nontender. Bowel sounds present. Extremities: Have no to trace edema. No clubbing or cyanosis. LABORATORY DATA: Sodium 146, potassium 3.6, chloride 101, bicarbonate 35. BUN 37, creatinine 1.7. IMPRESSION: 1. Acute kidney injury, resolving. 2. Hypernatremia, resolving. I will sign off at this time. If I can be of further assistance, please do not hesitate to call. cc: Bill Villagran MD
--- NOTE | 2017-01-11 13:11 | PROGRESS NOTE ---
DATE: 01/11/2017 SUBJECTIVE: The patient is still confused, thrashing about in bed. OBJECTIVE: Vital signs: Blood pressure is 188/87, pulse of 65, respirations 16, temperature 98.0 degrees, sat of 100% on 50% of the Venturi mask. General appearance: Thin, white male, in no acute distress. HEENT: Anicteric. Clear conjunctivae. Neck: Supple. No jugular venous distention. No bruit. Cardiovascular: S1, S2. Normal rate and rhythm. No murmur, rubs, or gallops. Pulmonary: Crackles bilaterally. Gastrointestinal: Soft, nontender, nondistended. Normoactive bowel sounds. Musculoskeletal: No clubbing, cyanosis, or edema. LABORATORY: White count 8.67, hemoglobin 11.4, hematocrit 35.4, platelets of 145,000. Chemistry: Sodium 146, potassium 3.6, chloride 101, bicarb 35. BUN 37, creatinine 1.7, glucose of 185. ASSESSMENT AND PLAN: This is a 56-year-old white male, admitted to the hospital for shortness of breath and weakness. 1. Shortness of breath. The patient was found to have bilateral pneumonia. We will continue Zosyn for now. Cultures have remained negative thus far. 2. Altered mental status, probably secondary to alcohol withdrawal and delirium tremens. We will plan to place nasogastric tube and start on nutrition and oral and medications. The patient is on Ativan scheduled now. PRN Geodon and Haldol. 3. Hypertension. We will place the patient on PRN hydralazine. 4. Acute renal failure. The patient creatinine is improving. We will readjust his antibiotics. 5. Hypokalemia. Will replace potassium.
[2017-01-11] MEDS: LIBRIUM NG SCH ×2 (13:48→18:23)
[2017-01-11] MEDS: ZOSYN 3.375 GM/NS 3.375 GM/50 ML IVPB IV SCH ×2 (13:48→21:26)
[2017-01-11] MEDS: GEODON IM PRN (17:18)
[2017-01-11] MEDS ORDERED: LOPRESSOR IV ONE (17:45)
[2017-01-11] MEDS ORDERED: LOPRESSOR ONE (17:47)
[2017-01-11] MEDS ORDERED: LOPRESSOR IV PRN (17:59)
[2017-01-12] MEDS: LIBRIUM NG SCH ×4 (01:36→20:13)
[2017-01-12] MEDS: MORPHINE IV PRN ×2 (01:57→06:15)
[2017-01-12] MEDS: NITROGLYCERIN TOP SCH ×4 (03:26→23:59)
[2017-01-12] MEDS: DUONEB (A & A) INH SCH ×6 (03:45→22:51)
[2017-01-12 04:42] LABS: ALLEN TEST YES; BE 15.1 mmoll (-3.0-3.0); BLOOD TYPE ARTERIAL; DRAW SITE R RADIAL; METHB 0.7 % (0.0-1.5); O2(CT) 12.6 mL/dL (15.0-23.0); SAMPLE BLOOD; SAO2 91.7 % (95.0-100.0); THB 10.3 g/dL (11.5-17.4); pH(98.6) 7.49 (7.35-7.45)
[2017-01-12 04:43] LABS: MODALITY CANNULA
[2017-01-12 04:44] LABS: PCO2(98.6) 53 mmHg (35-45); PO2(98.6) 46 mmHg (60-100)
[2017-01-12] MEDS: ZOSYN 3.375 GM/NS 3.375 GM/50 ML IVPB IV SCH ×3 (05:59→23:57)
[2017-01-12] MEDS: SOLU-MEDROL IV SCH ×2 (05:59→17:13)
[2017-01-12] MEDS: APRESOLINE IV PRN ×3 (06:00→19:55)
[2017-01-12] MEDS: HALDOL IV PRN (06:16)
[2017-01-12 06:18] LABS: BASO% 0.1 % (0.0-0.8); EOS# 0.35 X1000 (0.0-0.7); EOS% 2.2 % (0.0-10.0); HEMATOCRIT 38.2 % (42.0-52.0); HEMOGLOBIN 12.6 g/dL (14.0-18.0); IMM GRAN# 0.15 X1000 (0.0-0.04); LYMPH# 0.19 X1000 (1.2-3.4); LYMPH% 1.2 % (20.5-51.1); MANUAL DIFF NEEDED? YES; MCH 28.3 PG (27-31); MCV 85.7 FL (81-99); MONO# 0.53 X1000 (0.11-0.59); MONO% 3.4 % (1.7-9.3); MPV 11.6 FL (7.4-10.4); NEUT% 92.1 % (42.2-75.2); PLT 177 X1000 (130-400); RBC 4.46 XMIL (4.7-6.1)
[2017-01-12 06:54] LABS: CALCIUM 8.7 mg/dL (8.8-10.2); POTASSIUM 3.4 mmol/L (3.5-5.1)
[2017-01-12 06:56] LABS: PREALBUMIN 19.4 mg/dL (20-40)
[2017-01-12 07:03] LABS: BANDS 8 % (0-1); EOS 2 % (1-10); LYMPHS 2 % (21-51); MONO 6 % (1-9)
[2017-01-12] MEDS: ADVAIR 100/50 DISKUS INH SCH (08:07)
--- NOTE | 2017-01-12 08:21 | Diag Imaging Result Document ---
PROCEDURE NAME: CHEST-1 VIEW - 01/12/2017 SINGLE FRONTAL RADIOGRAPH OF THE CHEST: COMPARISON: 01/11/2017. FINDINGS: Left PICC line is stable. An NG tube projects below the diaphragm and out of the field of view. Diffuse bilateral infiltrates and pulmonary venous congestion is approximately stable. No new consolidation is identified. Cardiac silhouette is stable. IMPRESSION: Stable chest.
[2017-01-12] MEDS: MIRALAX PO SCH (08:58)
[2017-01-12] MEDS: SUBUTEX SL SCH ×3 (08:59→16:26)
[2017-01-12] MEDS: D5W 1,000 ML IV SCH (09:12)
--- NOTE | 2017-01-12 11:48 | PROGRESS NOTE ---
DATE: 01/12/2017 Mr. Orellana seems more alert today, but not more attentive. He is mumbling more spontaneously but not saying words that I can understand. He did not follow simple commands. He continues to move all limbs briskly. I do not have any new suggestion from neurologic standpoint. cc: Janneth Engel III, MD
--- NOTE | 2017-01-12 13:27 | PROGRESS NOTE ---
DATE: 01/12/2017 SUBJECTIVE: The patient is still confused. He is tolerating his tube feeds just fine. Blood pressure elevated overnight. OBJECTIVE: Vital Signs: Blood pressure 183/82, pulse of 83, respiration 15, temperature 98.9 degrees, saturations 100% on 4 L. General Appearance: Confused. HEENT: Poor dentition. Neck: Supple. No JVD. No bruit. Cardiovascular: S1, S2. Normal rate and rhythm. No murmur, rubs, or gallops. Pulmonary: Clear to auscultation bilaterally. GI: Soft, nontender, nondistended. Normoactive bowel sounds. Musculoskeletal: No clubbing, cyanosis or edema. LABORATORY: Sodium 142, potassium 3.4, chloride 96, bicarb 33, creatinine 1.6, glucose of 268. Hematology. White count 15.71, hemoglobin 12.6, hematocrit 28.2, platelets 177,000. Chest x- ray is stable to pulmonary vascular congestions. ASSESSMENT/PLAN: 56-year-old admitted to the hospital for overdose and alcohol intoxication. 1. Encephalopathy probably secondary to delirium tremens. Will continue schedule Librium. The patient has Geodon, Haldol and Ativan on board for agitation. 2. Moderate protein calorie deficiency. Will continue tube feed for now. Will continue to check residual. 3. Hypertension. Will start the patient on diltiazem today per tube. 4. Acute kidney injury. Kidney function is improving. CODE STATUS: The patient is a full code. Unable to get hold of family.
[2017-01-12] MEDS: CARDIZEM PO SCH ×2 (14:47→20:13)
[2017-01-12] MEDS: CARDIZEM 100 MG/NS 100 MG/100 ML IVPB IV SCH ×2 (14:47→23:51)
[2017-01-13] MEDS: HALDOL IV PRN (00:33)
[2017-01-13] MEDS: ATIVAN IV PRN ×3 (02:51→22:33)
[2017-01-13] MEDS: APRESOLINE IV PRN (02:52)
[2017-01-13] MEDS: LIBRIUM NG SCH ×4 (02:58→20:05)
[2017-01-13] MEDS: CARDIZEM PO SCH ×4 (02:59→20:06)
[2017-01-13] MEDS: DUONEB (A & A) INH SCH ×6 (03:21→22:53)
[2017-01-13] MEDS: NITROGLYCERIN TOP SCH ×4 (03:44→22:18)
[2017-01-13] MEDS: D5W 1,000 ML IV SCH (04:43)
[2017-01-13 04:53] LABS: ALLEN TEST YES; BE 14.3 mmoll (-3.0-3.0); BLOOD TYPE ARTERIAL; DRAW SITE R RADIAL; PCO2(98.6) 48 mmHg (35-45); PO2(98.6) 63 mmHg (60-100); SAMPLE BLOOD; pH(98.6) 7.52 (7.35-7.45)
[2017-01-13 04:54] LABS: MODALITY CANNULA
[2017-01-13 05:57] LABS: HEMOGLOBIN 12.1 g/dL (14.0-18.0); IMM GRAN# 0.09 X1000 (0.0-0.04); IMM GRAN% 0.6 % (0.0-0.5); LYMPH# 0.16 X1000 (1.2-3.4); MANUAL DIFF NEEDED? YES; MCH 28.3 PG (27-31); MCHC 33.6 g/dL (33-37); MCV 84.3 FL (81-99); MONO# 0.66 X1000 (0.11-0.59); MONO% 4.2 % (1.7-9.3); MPV 10.9 FL (7.4-10.4); NEUT% 94.2 % (42.2-75.2); PLT 182 X1000 (130-400); RBC 4.27 XMIL (4.7-6.1)
[2017-01-13 05:58] LABS: CALCIUM 8.4 mg/dL (8.8-10.2); POTASSIUM 3.2 mmol/L (3.5-5.1)
[2017-01-13] MEDS: ZOSYN 3.375 GM/NS 3.375 GM/50 ML IVPB IV SCH ×3 (06:01→22:19)
[2017-01-13] MEDS: SOLU-MEDROL IV SCH ×2 (06:01→17:33)
[2017-01-13 06:08] LABS: MAGNESIUM 1.9 mg/dL (1.5-2.7)
[2017-01-13 07:22] LABS: BANDS 10 % (0-1); MONO 4 % (1-9)
[2017-01-13] MEDS: ADVAIR 100/50 DISKUS INH SCH ×2 (07:57→19:51)
--- NOTE | 2017-01-13 08:34 | Diag Imaging Result Document ---
PROCEDURE NAME: CHEST-1 VIEW - 01/13/2017 PORTABLE CHEST: COMPARISON: 01/12/2017. FINDINGS: No change in the nasogastric tube or the left sided PICC line. There are dense bilateral infiltrates. Overall these are more pronounced than on the prior exam. The heart is not enlarged. I believe there are small pleural effusions. There has been prior surgery to each clavicle. IMPRESSION: Mild interval worsening.
[2017-01-13] MEDS: MIRALAX PO SCH (08:39)
[2017-01-13] MEDS: SUBUTEX SL SCH ×3 (08:39→16:50)
[2017-01-13] MEDS: LOVENOX SUBQ SCH (08:39)
[2017-01-13] MEDS: LASIX IV SCH ×2 (10:32→22:18)
[2017-01-13] MEDS: LEVAQUIN 750 MG/D5W 750 MG/150 ML IVPB IV SCH (10:44)
[2017-01-13] MEDS ORDERED: POTASSIUM CHLORIDE 40 MEQ/SWI 40 MEQ/100 ML IVPB IV ONE (11:36)
[2017-01-13] MEDS: 1/2 NS 1,000 ML IV SCH (11:59)
--- NOTE | 2017-01-13 12:00 | PROGRESS NOTE ---
DATE: 01/13/2017 SUBJECTIVE: The patient is feeling better today. He is much more awake and alert. Answers questions more appropriately. OBJECTIVE: Vital Signs: Blood pressure 141/73, pulse of 71, respirations 14, temperature 97.7 degrees, sat 100% on 3 L nasal cannula. General Appearance: White male in no acute distress. A little drowsy but is much improved mentally. General Appearance: Thin white male. Neck supple. No JVD. No bruit. Cardiovascular: S1, S2. Normal rate and rhythm. No murmur, rubs, or gallops. Pulmonary: Clear to auscultation bilaterally. GI soft, nontender, nondistended. Normoactive bowel sounds. Musculoskeletal: No clubbing, cyanosis, or edema. LABORATORY: White count 15.66, hemoglobin 12.1, hematocrit of 36.0, platelets 182,000. Chemistry: Sodium 140, potassium , chloride 94, bicarb 34. BUN 34 and creatinine 1.6, glucose of 313. ASSESSMENT AND PLAN: This 56-year-old admitted to the hospital for altered mental status. 1. Altered mental status, much improved, consistent with delirium tremens. The patient has a long history of alcohol abuse. He is much improved mentally. The patient has been doing well with Librium. We will start the patient on a diet once he is mentally more clear. We will continue tube feed for now p.r.n., Geodon and Haldol. 2. Hyperglycemia. We will check his A1c. We changed fluid to half-normal saline. 3. Pneumonia. We will continue Levaquin and Zosyn. 4. Deep vein thrombosis prophylaxis. The patient on Lovenox. 5. Code Status: The patient is a FULL CODE. 6. Hypokalemia. We will replete her potassium.
[2017-01-13] MEDS: CARDIZEM 100 MG/NS 100 MG/100 ML IVPB IV SCH (15:45)
[2017-01-14] MEDS: HALDOL IV PRN (00:30)
[2017-01-14] MEDS: GEODON IM PRN (00:39)
[2017-01-14] MEDS: LIBRIUM NG SCH ×4 (01:57→20:26)
[2017-01-14] MEDS: CARDIZEM PO SCH ×4 (01:57→20:26)
[2017-01-14] MEDS: DUONEB (A & A) INH SCH ×6 (03:05→23:26)
[2017-01-14 04:58] LABS: ALLEN TEST YES; BE 15.4 mmoll (-3.0-3.0); BLOOD TYPE ARTERIAL; DRAW SITE R RADIAL; METHB 1.5 % (0.0-1.5); O2(CT) 22.4 mL/dL (15.0-23.0); PO2(98.6) 80 mmHg (60-100); SAMPLE BLOOD; THB 16.8 g/dL (11.5-17.4); pH(98.6) 7.48 (7.35-7.45)
[2017-01-14 05:00] LABS: MODALITY CANNULA; PCO2(98.6) 57 mmHg (35-45)
[2017-01-14] MEDS: NITROGLYCERIN TOP SCH ×3 (05:00→16:28)
[2017-01-14] MEDS: ZOSYN 3.375 GM/NS 3.375 GM/50 ML IVPB IV SCH ×2 (05:00→13:58)
[2017-01-14] MEDS: SOLU-MEDROL IV SCH ×2 (05:58→17:15)
[2017-01-14 06:01] LABS: HEMOGLOBIN A1C 5.8 % (4.8-6.0)
[2017-01-14 06:10] LABS: CALCIUM 8.6 mg/dL (8.8-10.2); MAGNESIUM 1.9 mg/dL (1.5-2.7); POTASSIUM 3.4 mmol/L (3.5-5.1)
--- NOTE | 2017-01-14 06:55 | Diag Imaging Result Document ---
PROCEDURE NAME: CHEST-1 VIEW - 01/14/2017 PORTABLE CHEST: COMPARISON: Compared to 01/13/2017. FINDINGS: No change in the left-sided PICC line. Nasogastric tube overlies the esophagus and stomach. The heart is not enlarged. There are diffuse bilateral infiltrates. These are slightly less dense than on the prior exam. I suspect there are tiny pleural effusions. IMPRESSION: Mild interval improvement.
[2017-01-14 07:20] LABS: HEMATOCRIT 34.1 % (42.0-52.0); HEMOGLOBIN 11.4 g/dL (14.0-18.0); IMM GRAN# 0.04 X1000 (0.0-0.04); IMM GRAN% 0.4 % (0.0-0.5); LYMPH# 0.12 X1000 (1.2-3.4); LYMPH% 1.1 % (20.5-51.1); MANUAL DIFF NEEDED? YES; MCH 28.1 PG (27-31); MCHC 33.4 g/dL (33-37); MCV 84.2 FL (81-99); MONO% 4.4 % (1.7-9.3); MPV 11.4 FL (7.4-10.4); NEUT% 94.1 % (42.2-75.2); PLT 157 X1000 (130-400); RBC 4.05 XMIL (4.7-6.1)
[2017-01-14] MEDS: 1/2 NS 1,000 ML IV SCH (07:46)
[2017-01-14] MEDS: ADVAIR 100/50 DISKUS INH SCH ×2 (08:04→19:23)
[2017-01-14 08:06] LABS: BANDS 2 % (0-1); LYMPHS 8 % (21-51); MONO 1 % (1-9)
[2017-01-14] MEDS: MIRALAX PO SCH (09:43)
[2017-01-14] MEDS: SUBUTEX SL SCH ×3 (09:43→17:15)
[2017-01-14] MEDS: LOVENOX SUBQ SCH (09:43)
--- NOTE | 2017-01-14 11:01 | PROGRESS NOTE ---
DATE: 01/14/2017 SUBJECTIVE: The patient is feeling a little better. He is up in the chair. Followed more commands today but still agitated and uncooperative at times. OBJECTIVE: Vital Signs: Blood pressure 103/60, pulse of 75, respirations 12, temperature of 97.6 degrees, saturation of 99% on 3 L of nasal cannula. General Appearance: Thin, white male, confused and mildly agitated. Able to tell me his name. HEENT: Anicteric sclerae. Clear conjunctivae. Poor dentition. NG tube is in place. Cardiovascular: S1 and S2. Normal rate and rhythm. No murmur, rubs, or gallops. Pulmonary: Clear to auscultation bilaterally. GI: Soft, nontender, nondistended. Normoactive bowel sounds. Musculoskeletal: No clubbing, cyanosis, or edema. Laboratory: White count 11.3, hemoglobin 11.4, hematocrit 34.1, platelets of 157,000. Chemistry: Sodium 140, potassium of 3.4, chloride 92, bicarb 36, BUN 39, creatinine 1.9, glucose of 417. ASSESSMENT/PLAN: This is a 56-year-old, white male admitted to the hospital for altered mental status. 1. Altered mental status, most likely the result of his pneumonia and alcohol withdrawal. Altered mental status. We will continue supportive care. The patient is on Geodon and Haldol. We will get the patient on scheduled Librium. 2. Acute renal failure. The patient did get Lasix yesterday but we will hold Lasix. He is on normal saline at 50 mL per hour. We will increase his nasogastric tube fluid intake to 350 mL per 4 hours and we will recheck his renal function tomorrow. 3. Tachycardia. We will increase his diltiazem and we will stop his diltiazem drip. 4. Pneumonia. We will continue Zosyn for now. 5. Code status. The patient is a full code.
[2017-01-14] MEDS: HUMULIN R SUBQ SCH ×2 (11:59→16:27)
[2017-01-14] MEDS: ATIVAN IV PRN (15:09)
[2017-01-15] MEDS: ATIVAN IV PRN (01:43)
[2017-01-15] MEDS: HUMULIN R SUBQ SCH ×5 (01:46→23:09)
[2017-01-15] MEDS: CARDIZEM PO SCH ×4 (01:51→22:20)
[2017-01-15] MEDS: ZOSYN 3.375 GM/NS 3.375 GM/50 ML IVPB IV SCH ×3 (01:51→18:07)
[2017-01-15] MEDS: LIBRIUM NG SCH ×4 (01:51→22:19)
[2017-01-15] MEDS: 1/2 NS 1,000 ML IV SCH ×2 (02:00→04:20)
[2017-01-15] MEDS: NITROGLYCERIN TOP SCH ×5 (02:07→22:24)
[2017-01-15] MEDS: DUONEB (A & A) INH SCH ×5 (03:28→23:30)
[2017-01-15 04:41] LABS: ALLEN TEST YES; BE 13.7 mmoll (-3.0-3.0); BLOOD TYPE ARTERIAL; DRAW SITE L RADIAL; METHB 1.5 % (0.0-1.5); O2(CT) 19.4 mL/dL (15.0-23.0); PO2(98.6) 76 mmHg (60-100); SAMPLE BLOOD; SAO2 97.8 % (95.0-100.0); THB 14.7 g/dL (11.5-17.4); pH(98.6) 7.42 (7.35-7.45)
[2017-01-15 04:42] LABS: MODALITY CANNULA; PCO2(98.6) 64 mmHg (35-45)
[2017-01-15] MEDS: SOLU-MEDROL IV SCH ×2 (06:07→18:07)
[2017-01-15 07:32] LABS: CALCIUM 8.3 mg/dL (8.8-10.2); POTASSIUM 3.4 mmol/L (3.5-5.1)
[2017-01-15 07:44] LABS: HEMATOCRIT 34.4 % (42.0-52.0); HEMOGLOBIN 11.6 g/dL (14.0-18.0); IMM GRAN# 0.05 X1000 (0.0-0.04); IMM GRAN% 0.3 % (0.0-0.5); LYMPH% 0.7 % (20.5-51.1); MANUAL DIFF NEEDED? YES; MCH 28.5 PG (27-31); MCHC 33.7 g/dL (33-37); MCV 84.5 FL (81-99); MONO# 0.33 X1000 (0.11-0.59); MONO% 2.3 % (1.7-9.3); MPV 11.2 FL (7.4-10.4); NEUT% 96.7 % (42.2-75.2); PLT 186 X1000 (130-400); RBC 4.07 XMIL (4.7-6.1)
[2017-01-15 07:51] LABS: BANDS 2 % (0-1); HYPOCHROM 1+; MONO 2 % (1-9)
[2017-01-15] MEDS: ADVAIR 100/50 DISKUS INH SCH ×2 (07:54→19:39)
--- NOTE | 2017-01-15 08:18 | PROGRESS NOTE ---
DATE: 01/15/2017 Mr. Orellana is a little bit more alert, more attentive, following simple commands more consistently. I could understand some of his words better today than when I saw him a few days ago. There is still nothing focal neurologically. There is no meningismus. I do not have any new thoughts or new suggestions from neurologic standpoint today. He seems to be slowly recovering from a global encephalopathy. Thanks for allowing me to follow Mr. Orellana. cc: MD EILEEN Contreras III
--- NOTE | 2017-01-15 08:24 | Diag Imaging Result Document ---
PROCEDURE NAME: CHEST-1 VIEW - 01/15/2017 PORTABLE CHEST, 01/15/2017 AT 0500 HOURS: FINDINGS: There is a PICC line on the left with its tip in the superior vena cava. There is an NG tube which appears to pass below the diaphragm. There is interstitial and alveolar pulmonary edema. There are small bilateral pleural effusions. The latter appear to have worsened somewhat since 01/14/2017, however otherwise there has been no appreciable change. IMPRESSION: Pulmonary edema and pleural effusions.
[2017-01-15] MEDS: SUBUTEX SL SCH ×3 (08:41→22:24)
[2017-01-15] MEDS: LOVENOX SUBQ SCH (08:41)
[2017-01-15] MEDS: MIRALAX PO SCH (08:42)
[2017-01-15] MEDS ORDERED: LASIX IV ONE (09:59)
[2017-01-15] MEDS: LEVAQUIN 750 MG/D5W 750 MG/150 ML IVPB IV SCH (10:37)
--- NOTE | 2017-01-15 10:41 | PROGRESS NOTE ---
DATE: 01/15/2017 SUBJECTIVE: This patient is not agitated today. This patient is feeling a little bit better. He is following commands. He is oriented in person. He knows that he is in the hospital, but he does not know which one. He is not oriented in time or situation. We had a new x-ray that showed pulmonary edema. He is not in any respiratory distress, and the urine output has been good. Either way, I will give a 1 time dose of Lasix. OBJECTIVE: Vital Signs: Temperature 97.8 degrees, pulse 65, respiratory rate 13, blood pressure 106/70, and O2 saturation 97% on 3 liters of nasal cannula. HEENT: Head is normocephalic. No trauma. PERRLA. Neck: Supple. No JVD. No masses. Central trachea. Chest: Decreased breath sounds at the bases, bilateral. Rhonchi scattered. Abdomen: Soft, nontender, nondistended. Extremities: No edema, no clubbing, no cyanosis. Right upper extremity amputation. LABORATORY DATA: WBC 14.4, hemoglobin 11.6, hematocrit 34.4, platelet 186,000. Sodium 140, potassium 3.4, chloride 92, bicarbonate 35, BUN 41, creatinine 1.8, glucose 275, calcium 8.3. ASSESSMENT AND PLAN: 1. 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 This patient's urine toxicology on presentation was positive for benzodiazepine, amphetamines, and cannabinoids. Also, this patient has been on Xanax and buprenorphine at least since July 2016. The Neurology Department is on board. 2. Acute hypercapnic respiratory failure, likely related to chronic obstructive pulmonary disease exacerbation. He has been on intravenous steroids. I will switch that to p.o. medication. The oxygen saturation is doing fine with nasal cannula. Chest x-ray showed pulmonary edema, so I will use 1 time intravenous Lasix. 3. Acute renal failure. The urine output has been stable. Continue with the same monitoring. 4. Tachycardia. This patient is on diltiazem 60 mg by mouth every 6 hours scheduled. We will continue with the same treatment for now. The heart rate has been stable. 5. Pneumonia. Continue with Zosyn. 6. Iron deficiency anemia. We will start oral supplementation when the lung infection is better. 7. Possible chronic pain syndrome. This patient has been on buprenorphine for a very long time. At this moment, he is still on that medication and morphine as needed. cc: Isrrael Newell MD
[2017-01-15] MEDS ORDERED: VASELINE TOP PRN (10:47)
[2017-01-15 15:00] LABS: MAGNESIUM 1.9 mg/dL (1.5-2.7)
[2017-01-16] MEDS: MORPHINE IV PRN ×2 (00:27→06:37)
[2017-01-16] MEDS: LIBRIUM NG SCH ×4 (02:34→22:44)
[2017-01-16] MEDS: CARDIZEM PO SCH ×4 (02:34→22:44)
[2017-01-16] MEDS: ZOSYN 3.375 GM/NS 3.375 GM/50 ML IVPB IV SCH ×3 (02:34→22:45)
[2017-01-16] MEDS: DUONEB (A & A) INH SCH ×6 (03:31→23:06)
[2017-01-16 04:00] LABS: ALLEN TEST YES; BE 14.7 mmoll (-3.0-3.0); BLOOD TYPE ARTERIAL; DRAW SITE R RADIAL; METHB 1.4 % (0.0-1.5); O2(CT) 17.1 mL/dL (15.0-23.0); PO2(98.6) 69 mmHg (60-100); SAMPLE BLOOD; SAO2 97.3 % (95.0-100.0); pH(98.6) 7.41 (7.35-7.45)
[2017-01-16 04:01] LABS: MODALITY CANNULA
[2017-01-16 04:02] LABS: PCO2(98.6) 67 mmHg (35-45)
[2017-01-16] MEDS: NITROGLYCERIN TOP SCH ×4 (05:16→22:44)
[2017-01-16 06:47] LABS: HEMATOCRIT 35.5 % (42.0-52.0); HEMOGLOBIN 11.9 g/dL (14.0-18.0); IMM GRAN# 0.06 X1000 (0.0-0.04); IMM GRAN% 0.3 % (0.0-0.5); LYMPH# 0.19 X1000 (1.2-3.4); LYMPH% 1.1 % (20.5-51.1); MANUAL DIFF NEEDED? YES; MCH 28.3 PG (27-31); MCHC 33.5 g/dL (33-37); MCV 84.5 FL (81-99); MONO# 0.66 X1000 (0.11-0.59); MONO% 3.7 % (1.7-9.3); NEUT% 94.9 % (42.2-75.2); PLT 157 X1000 (130-400)
[2017-01-16 06:55] LABS: CALCIUM 8.3 mg/dL (8.8-10.2); POTASSIUM 3.3 mmol/L (3.5-5.1)
[2017-01-16] MEDS: SOLU-MEDROL IV SCH (06:55)
[2017-01-16] MEDS: HUMULIN R SUBQ SCH ×4 (06:55→21:30)
[2017-01-16 07:07] LABS: BANDS 6 % (0-1); LYMPHS 2 % (21-51); MONO 4 % (1-9)
--- NOTE | 2017-01-16 07:47 | Diag Imaging Result Document ---
PROCEDURE NAME: CHEST-1 VIEW - 01/16/2017 SINGLE FRONTAL RADIOGRAPH OF THE CHEST: COMPARISON: 01/15/2017. FINDINGS: An NG tube projects below the diaphragm and appears to be just within the stomach. Bilateral infiltrates with a basilar predominance and small effusions are approximately stable suggesting pulmonary edema. No new consolidation identified. Cardiac silhouette is stable. IMPRESSION: Stable chest.
[2017-01-16] MEDS: ADVAIR 100/50 DISKUS INH SCH ×2 (07:48→19:28)
[2017-01-16] MEDS: POTASSIUM CHLORIDE 20 MEQ/SWI 20 MEQ/100 ML IVPB IV SCH ×2 (10:13→12:23)
[2017-01-16] MEDS: LOVENOX SUBQ SCH (10:14)
[2017-01-16] MEDS: MIRALAX PO SCH (10:14)
[2017-01-16] MEDS: SUBUTEX SL SCH ×3 (10:29→16:44)
--- NOTE | 2017-01-16 11:21 | PROGRESS NOTE ---
DATE: 01/16/2017 Mr. Orellana is much more alert, more spontaneous, moving about. He continues disoriented. Speech is much improved. I do not see a definite focal neurologic finding. I do not have any new suggestion from a neurologic standpoint today. Thanks for allowing me to follow Mr. Orellana. cc: Janneth Engel III, MD
--- NOTE | 2017-01-16 16:19 | PROGRESS NOTE ---
DATE: 01/16/2017 SUBJECTIVE: This patient is not agitated today. He is still confused, but he follows commands on and off. He is oriented in person. He knows that he is in the hospital. He does not know which one. We have an x-ray that showed basically that the chest is stable. He is not on respiratory distress. He still has an NG tube. Today, the swallow evaluation will see the patient. OBJECTIVE: Vital Signs: Temperature 98.1 degrees, pulse 101, respiratory rate 20, blood pressure 115/63, O2 saturation 94% on 3 L of nasal cannula. HEENT: Head normocephalic. No trauma. PERRLA. Neck: Supple. No JVD. No masses. Central trachea. Chest: Decreased breath sounds at the bases. Bilateral rhonchi and scattered. Abdomen: Soft, nontender, nondistended. No hepatosplenomegaly. He has a right upper extremity amputation. Neurological: The patient is alert. He is not oriented, he is following commands on and off. LABORATORY: WBC 17.9, hemoglobin 11.9, hematocrit 35.5, platelets 157,000. Sodium 139, potassium 3.3, chloride 91, bicarbonate 38, BUN 42, creatinine 1.7. Glucose 212, calcium 8.3. ASSESSMENT AND PLAN: 1. Altered mental status likely secondary to infectious process but also probably this is related to long-term use of recreational drugs. This patient's urine toxicology on presentation was positive for benzodiazepine, amphetamine and cannabinoids. Also this patient has been on Xanax and buprenorphine at least since July 2016. Neurology Department is on board. Continue with the same management for now. 2. Acute hypercapnic respiratory failure likely secondary to chronic obstructive pulmonary disease exacerbation. He has been on IV steroids. These has been switched to p.o. medication. The oxygen saturation is doing better on nasal cannula. Chest x-ray did not show any acute abnormality today. 3. Acute renal failure. Urine output has been stable. So far, 2.4 L. 4. Tachycardia. This patient is on diltiazem 60 mg p.o. every 6 hours scheduled. We will continue with the same management for now. 5. Pneumonia. Continue with Zosyn. 6. Iron-deficiency anemia. We will start oral supplementation when the infection is better. 7. Possible chronic pain syndrome. This patient has been on buprenorphine. He is still on this medication and morphine as needed. 8. Nutritional status. This patient has an NG tube and we are doing tube feedings. Today I asked for a swallow evaluation. Pending recommendations. cc: Isrrael Newell MD
[2017-01-16 18:26] LABS: URINE SOURCE CATH
[2017-01-16 18:45] LABS: BILIRUBIN URINE NEGATIVE (NEGATIVE); BLOOD URINE SMALL (NEGATIVE); COLOR YELLOW; GLUCOSE URINE NEGATIVE (NEGATIVE); LEUKOCYTES URINE MODERATE (NEGATIVE); NITRITE URINE NEGATIVE (NEGATIVE); PH URINE 5.5; PROTEIN URINE TRACE mg/dL (NEGATIVE); SP GRAVITY URINE 1.015; TURBIDITY URINE HAZY (CLEAR); UROBILINOGEN URINE NORMAL (NORMAL)
[2017-01-16 18:52] LABS: UR EPITHELIAL CELLS <10 /HPF (<10); URINE BACTERIA NEGATIVE /HPF; URINE MICRO REVIEW NEEDED? YES; URINE RBC TNTC /HPF (<10); URINE WBC TNTC /HPF (<10)
[2017-01-16 18:59] LABS: URINE CASTS NONE SEEN
[2017-01-17] MEDS: ZOSYN 3.375 GM/NS 3.375 GM/50 ML IVPB IV SCH ×3 (03:16→21:56)
[2017-01-17] MEDS: LIBRIUM NG SCH ×2 (03:16→08:47)
[2017-01-17] MEDS: CARDIZEM PO SCH ×4 (03:16→21:57)
[2017-01-17] MEDS: DUONEB (A & A) INH SCH ×6 (03:19→22:58)
[2017-01-17] MEDS: NITROGLYCERIN TOP SCH ×4 (04:33→21:56)
--- NOTE | 2017-01-17 06:12 | Diag Imaging Result Document ---
PROCEDURE NAME: CHEST-1 VIEW - 01/17/2017 PORTABLE CHEST: COMPARISON: Compared to 01/16/2017. FINDINGS: There is a nasogastric tube and left-sided PICC line which are unchanged. There are basilar infiltrates similar to the prior exam. I believe there are small pleural effusions as well. The heart is not enlarged. There has been prior surgery to each clavicle. IMPRESSION: No interval improvement.
[2017-01-17 06:43] LABS: EOS# 0.03 X1000 (0.0-0.7); EOS% 0.2 % (0.0-10.0); HEMOGLOBIN 10.1 g/dL (14.0-18.0); IMM GRAN# 0.05 X1000 (0.0-0.04); IMM GRAN% 0.4 % (0.0-0.5); LYMPH# 0.36 X1000 (1.2-3.4); LYMPH% 2.9 % (20.5-51.1); MANUAL DIFF NEEDED? YES; MCH 27.6 PG (27-31); MCHC 31.6 g/dL (33-37); MCV 87.4 FL (81-99); MONO# 0.81 X1000 (0.11-0.59); MONO% 6.5 % (1.7-9.3); MPV 10.7 FL (7.4-10.4); PLT 133 X1000 (130-400); RBC 3.66 XMIL (4.7-6.1)
[2017-01-17] MEDS: HUMULIN R SUBQ SCH ×4 (06:46→22:40)
[2017-01-17 07:04] LABS: CALCIUM 7.7 mg/dL (8.8-10.2); POTASSIUM 3.9 mmol/L (3.5-5.1)
[2017-01-17] MEDS: ADVAIR 100/50 DISKUS INH SCH ×2 (07:27→19:04)
[2017-01-17 07:28] LABS: BANDS 2 % (0-1); HYPOCHROM 1+; LYMPHS 6 % (21-51); MONO 2 % (1-9)
[2017-01-17] MEDS: MIRALAX PO SCH (08:46)
[2017-01-17] MEDS: LOVENOX SUBQ SCH (08:47)
[2017-01-17] MEDS: SOLU-MEDROL IV SCH (08:48)
[2017-01-17] MEDS: SUBUTEX SL SCH ×3 (09:07→17:16)
[2017-01-17] MEDS: VITAMIN B-1 PO SCH (09:11)
[2017-01-17] MEDS: CENTRUM SILVER PO SCH (09:12)
[2017-01-17] MEDS: LEVAQUIN 750 MG/D5W 750 MG/150 ML IVPB IV SCH (11:31)
[2017-01-17] MEDS: LIBRIUM PO SCH ×2 (14:10→22:11)
--- NOTE | 2017-01-17 14:15 | PROGRESS NOTE ---
DATE: 01/17/2017 SUBJECTIVE: This patient is not agitated today; actually he is still confused, but compared with yesterday he is much better. He is oriented in person and he is able to recognize people, his friend is at the bedside. I asked him about drinking problem and he denies that. Instead, he told me that he has been using pain medication before. A few days ago I called his pharmacy and I corroborated the information about his medications, this patient has been on buprenorphine and Xanax. OBJECTIVE: Vital Signs: Temperature 98.4 degrees, pulse 81, respiratory rate 18, blood pressure 128/80, oxygen saturation 96 on 3 L of nasal cannula. HEENT: Head normocephalic. No trauma. PERRLA. Neck: Supple. No JVD. No masses. Central trachea. Cardiovascular: RRR. No murmurs. Chest: Clear to auscultation. No wheezing. No rales. Abdomen: Soft, nontender, nondistended. No hepatosplenomegaly. Extremities: No edema. No clubbing. No cyanosis. Neurological examination: The patient is alert. He is oriented x1. He knows that he is in the hospital. He does not know which one. He is able to recognize his friend. He is not oriented in time. He moves all 4 extremities. He has an amputation at the right upper extremity. LABORATORY: WBC 12.4, hemoglobin 10.1, hematocrit 32, platelets 133. Sodium 141, potassium 3.9, chloride 94, bicarbonate 37. BUN 48, creatinine 2, glucose 129, calcium 7.7. ASSESSMENT AND PLAN: 1. 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 This patient's urine toxicology on presentation was positive for benzodiazepine, amphetamine and cannabinoids. Also, this patient has been on Xanax and buprenorphine at least since July 2016. Neurology Department is on board. Continue with the same management for now. 2. Acute hypercapnic respiratory failure likely secondary to chronic obstructive pulmonary disease exacerbation. He has been on intravenous steroids and I switch it to oral medication. The oxygen saturation is doing better on nasal cannula. Chest x-ray did not show any acute abnormality yesterday. 3. Acute renal failure. Urine output has been stable. We will continue to monitor. 4. Tachycardia, stable. The heart rate is controlled. 5. Pneumonia. Continue with the same management. 6. Iron-deficiency anemia. We will restart this patient hopefully as an outpatient once this patient's infection is controlled. 7. Possible chronic pain syndrome. This patient has been on buprenorphine. He is still on this medication as morphine as needed as well. 8. Nutritional status. This patient has been on a nasogastric tube. I am going to remove this. Swallow evaluation saw this patient and they recommended a soft mechanical diet. This patient looks better today. I will remove the NG tube. I am going to start feeding this patient by mouth. Also, I will remove the Lewis catheter, and I will decrease the dose of Librium from 25 q. 6 hours to 10 q. 6 hours to see how he does. cc: Isrrael Newell MD
[2017-01-18] MEDS: DUONEB (A & A) INH SCH ×6 (02:30→23:13)
[2017-01-18] MEDS: CARDIZEM PO SCH ×4 (02:47→22:02)
[2017-01-18] MEDS: LIBRIUM PO SCH ×4 (02:47→22:02)
[2017-01-18] MEDS: ATIVAN IV PRN (02:50)
[2017-01-18] MEDS: NITROGLYCERIN TOP SCH ×4 (04:24→22:02)
[2017-01-18] MEDS: ZOSYN 3.375 GM/NS 3.375 GM/50 ML IVPB IV SCH ×3 (04:24→22:02)
[2017-01-18 06:23] LABS: EOS# 0.02 X1000 (0.0-0.7); EOS% 0.2 % (0.0-10.0); HEMATOCRIT 30.8 % (42.0-52.0); HEMOGLOBIN 9.9 g/dL (14.0-18.0); IMM GRAN# 0.03 X1000 (0.0-0.04); IMM GRAN% 0.3 % (0.0-0.5); LYMPH# 0.33 X1000 (1.2-3.4); LYMPH% 3.2 % (20.5-51.1); MANUAL DIFF NEEDED? YES; MCH 27.8 PG (27-31); MCHC 32.1 g/dL (33-37); MCV 86.5 FL (81-99); MONO% 4.9 % (1.7-9.3); MPV 10.8 FL (7.4-10.4); NEUT% 91.4 % (42.2-75.2); PLT 108 X1000 (130-400); RBC 3.56 XMIL (4.7-6.1)
[2017-01-18] MEDS: HUMULIN R SUBQ SCH ×4 (06:33→22:01)
[2017-01-18 06:34] LABS: CALCIUM 8.2 mg/dL (8.8-10.2); POTASSIUM 4.3 mmol/L (3.5-5.1)
[2017-01-18 06:37] LABS: LYMPHS 4 % (21-51); MONO 6 % (1-9)
--- NOTE | 2017-01-18 07:30 | Diag Imaging Result Document ---
PROCEDURE NAME: CHEST-1 VIEW - 01/18/2017 AP PORTABLE CHEST AT 0500 HOURS: FINDINGS: There is alveolar and interstitial opacity in both lung bases. This has not changed appreciably since the previous study of 01/17/2017. IMPRESSION: Pulmonary edema and/or pneumonia.
[2017-01-18] MEDS: ADVAIR 100/50 DISKUS INH SCH ×2 (07:47→19:12)
[2017-01-18] MEDS: SUBUTEX SL SCH ×3 (08:56→17:06)
[2017-01-18] MEDS: CENTRUM SILVER PO SCH (08:57)
[2017-01-18] MEDS: LOVENOX SUBQ SCH (08:57)
[2017-01-18] MEDS: VITAMIN B-1 PO SCH (08:57)
[2017-01-18] MEDS: SOLU-MEDROL IV SCH (08:58)
[2017-01-18] MEDS: MIRALAX PO SCH (08:58)
--- NOTE | 2017-01-18 10:51 | PROGRESS NOTE ---
DATE: 01/18/2017 Mr. Orellana continues awake, alert, and much improved compared to several days ago. I do not see any definite focal neurologic deficit on gross bedside testing. I do not have any new suggestions or new thoughts today from a neurologic standpoint. Thanks for allowing me to follow Mr. Orellana. cc: Janneth Engel III, MD
--- NOTE | 2017-01-18 14:42 | PROGRESS NOTE ---
DATE: 01/18/2017 SUBJECTIVE: This patient is not agitated today. He is sleepy, but arousable. He was oriented in time, person, and place. I asked again about drinking problems, and he denies that again. He has generalized weakness, and physical therapy is on board. Social workers are working on placement for a rehab placement; probably, this patient should go to a rehab facility and then to a jail facility. He had yesterday a swallow evaluation, and he is on a soft mechanical diet, and also he is getting Ensure. OBJECTIVE: Vital Signs: Temperature 98 degrees, pulse 69, respiratory rate 12, blood pressure 118/65, oxygen saturation 95% on 4 liters of nasal cannula. HEENT: Head normocephalic. No trauma. PERRLA. Neck: Supple. No JVD. No masses. Central trachea. Cardiovascular: RRR. No murmurs. Chest: Clear to auscultation. No wheezing. No rales. Abdomen: Soft. Mild tenderness to palpation at the level of the epigastric area. No hepatosplenomegaly. Extremities: No edema. No clubbing. No cyanosis. Neurological: The patient is sleepy, but arousable. He is oriented in person, time, and place. His answers are slow. He denied a history of alcohol abuse. He has an amputation at the level of the right upper extremity. LABORATORY DATA: WBC 10.1, hemoglobin 9.1, hematocrit 30.8, platelets 108,000. Sodium 140, potassium 4.3, chloride 95, bicarbonate 37, BUN 48, creatinine 2, glucose 116, calcium 8.2. ASSESSMENT AND PLAN: 1. 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 This patient's urine toxicology on presentation was positive for benzodiazepine, amphetamine, and cannabinoid. Also, this patient has been on Xanax and buprenorphine at least since July 2016. Neurology department is on board. Continue with the same management for now. 2. Acute hypercapnic respiratory failure, likely secondary to chronic obstructive pulmonary disease exacerbation. He is still on oral steroids. Chest x-ray did not show any acute abnormality a couple of days ago. 3. Acute renal failure. The urine output has been stable. Continue to monitor. 4. Tachycardia, stable. The heart rate is controlled. 5. Pneumonia. Continue with the same management. 6. Iron deficiency anemia. We will start iron supplementation hopefully when this patient is not having any kind of infection. 7. Possible chronic pain syndrome. This patient has been on buprenorphine. He is still on this medication and morphine as needed as well. 8. Nutritional status. This patient is on a soft mechanical diet and Ensure as well. We will continue to monitor. A swallow evaluation was done on this patient yesterday. 9. Physical deconditioning. Physical therapy is on board. We will continue to monitor. This patient should be discharged to a rehabilitation center. cc: Isrrael Newell MD
[2017-01-19] MEDS: DUONEB (A & A) INH SCH ×6 (02:30→23:30)
[2017-01-19] MEDS: ZOSYN 3.375 GM/NS 3.375 GM/50 ML IVPB IV SCH ×3 (04:01→20:18)
[2017-01-19] MEDS: LIBRIUM PO SCH ×4 (04:01→23:06)
[2017-01-19] MEDS: CARDIZEM PO SCH ×4 (04:01→20:18)
[2017-01-19] MEDS: NITROGLYCERIN TOP SCH ×4 (04:02→22:34)
[2017-01-19 05:52] LABS: EOS# 0.01 X1000 (0.0-0.7); EOS% 0.1 % (0.0-10.0); HEMATOCRIT 29.9 % (42.0-52.0); HEMOGLOBIN 9.7 g/dL (14.0-18.0); IMM GRAN# 0.02 X1000 (0.0-0.04); IMM GRAN% 0.2 % (0.0-0.5); LYMPH# 0.35 X1000 (1.2-3.4); LYMPH% 3.7 % (20.5-51.1); MANUAL DIFF NEEDED? YES; MCHC 32.4 g/dL (33-37); MCV 86.2 FL (81-99); MONO# 0.51 X1000 (0.11-0.59); MONO% 5.4 % (1.7-9.3); MPV 10.5 FL (7.4-10.4); NEUT% 90.6 % (42.2-75.2); PLT 114 X1000 (130-400); RBC 3.47 XMIL (4.7-6.1)
[2017-01-19] MEDS: HUMULIN R SUBQ SCH ×4 (06:03→22:24)
[2017-01-19 06:12] LABS: CALCIUM 8.4 mg/dL (8.8-10.2); POTASSIUM 4.7 mmol/L (3.5-5.1)
[2017-01-19 06:13] LABS: BANDS 8 % (0-1); LYMPHS 4 % (21-51); MONO 6 % (1-9)
[2017-01-19] MEDS: ADVAIR 100/50 DISKUS INH SCH ×2 (07:37→20:05)
--- NOTE | 2017-01-19 07:43 | Diag Imaging Result Document ---
PROCEDURE NAME: CHEST-1 VIEW - 01/19/2017 AP PORTABLE CHEST ERECT AT 0600 HOURS: FINDINGS: There is improvement in the alveolar opacities in both lung bases. Otherwise, there has been no significant change since 01/18/2017. IMPRESSION: Improved pulmonary edema.
[2017-01-19] MEDS: LOVENOX SUBQ SCH (08:05)
[2017-01-19] MEDS: VITAMIN B-1 PO SCH (08:05)
[2017-01-19] MEDS: CENTRUM SILVER PO SCH (08:05)
[2017-01-19] MEDS: SOLU-MEDROL IV SCH (08:05)
[2017-01-19] MEDS: MIRALAX PO SCH (08:06)
[2017-01-19] MEDS: SUBUTEX SL SCH ×4 (11:01→20:27)
[2017-01-19] MEDS: LEVAQUIN 750 MG/D5W 750 MG/150 ML IVPB IV SCH (11:18)
--- NOTE | 2017-01-19 13:02 | PROGRESS NOTE ---
DATE: 01/19/2017 PATIENT LOCATION: Room 475B. Mr. Orellana is awake, alert, oriented, and much more appropriate. Today, spontaneously, he volunteered "I know what happened to me, I overdosed, that is what." I encouraged him to stop illicit drug use, to be careful with his prescription medicines, and to keep follow up in his primary clinic. I do not have any new suggestion from a neurologic standpoint today. cc: Janneth Engel III, MD
--- NOTE | 2017-01-19 13:49 | PROGRESS NOTE ---
DATE: 01/19/2017 SUBJECTIVE: This patient is not agitated. He is tolerating p.o. He answers all my questions but as per the nurse, he has been having hallucination but not with me. I asked again about his drinking problems and he denied any kind of problem with alcohol. He states that he has been taking just pain medication but no alcohol. The social worker aide is on board. They are trying to find a place to send this patient to a rehab facility. OBJECTIVE: Vital Signs: Temperature 97.6 degrees, pulse 69, respiratory rate 14, blood pressure 150/79, oxygen saturation 97 on 2 L of nasal cannula. HEENT: Head normocephalic. No trauma. PERRLA. Neck: Supple. No JVD. No masses. Central trachea. Cardiovascular: RRR. No murmurs. Chest: Clear to auscultation. No wheezing. No rales. Abdomen: Soft. Mild tenderness to palpation at the level of the epigastric area. No hepatosplenomegaly. Extremities: No edema. No clubbing. No cyanosis. He has a right upper extremity amputation. Neurological: This patient is alert. He is oriented x2. Today he is not oriented in time. His answers are slow but he is answering all my questions. He denies again any history of alcohol abuse. But anyway I will keep this patient on Librium low dose. LABORATORY: WBC 9.4, hemoglobin 9.7, hematocrit 29.9, platelets 114,000. Sodium 142, potassium 4.7, chloride 97, bicarbonate 38, BUN 43, creatinine 1.9. Glucose 1.4, calcium 8.4. ASSESSMENT AND PLAN: 1. Altered mental status likely secondary to an infectious process and/or long-term use of recreational drugs. This patient's urine toxicology on presentation was positive for benzodiazepine, amphetamine and cannabinoids. Also, this patient has been on Xanax and buprenorphine at least since 2016. Neurology Department is on board. Continue with the same management for now. 2. Acute hypercapnic respiratory failure likely secondary to chronic obstructive pulmonary disease exacerbation. I will switch the IV steroids to p.o. steroids. 3. Acute renal failure. Urine output has been stable. Probably this is his new baseline. Will monitor. 4. Tachycardia stable. The rate is controlled. 5. Pneumonia. Continue with the same management. 6. Iron deficiency anemia. Aware. 7. Possible chronic pain syndrome. This patient has been on buprenorphine. Will continue with the same management. 8. Nutritional status. This patient is on soft mechanical diet and Ensure as well. Will continue to monitor. 9. Physical deconditioning. Physical therapy is on board. cc: Isrrael Newell MD
[2017-01-19] MEDS: HALDOL IV PRN (22:34)
[2017-01-20] MEDS: CARDIZEM PO SCH ×4 (02:58→21:14)
[2017-01-20] MEDS: NITROGLYCERIN TOP SCH ×4 (05:03→21:30)
[2017-01-20] MEDS: ZOSYN 3.375 GM/NS 3.375 GM/50 ML IVPB IV SCH ×3 (05:03→21:14)
[2017-01-20] MEDS: LIBRIUM PO SCH ×3 (05:21→17:09)
[2017-01-20 05:52] LABS: EOS# 0.03 X1000 (0.0-0.7); EOS% 0.3 % (0.0-10.0); HEMATOCRIT 30.4 % (42.0-52.0); HEMOGLOBIN 9.8 g/dL (14.0-18.0); IMM GRAN# 0.02 X1000 (0.0-0.04); IMM GRAN% 0.2 % (0.0-0.5); LYMPH% 6.6 % (20.5-51.1); MANUAL DIFF NEEDED? YES; MCH 27.6 PG (27-31); MCHC 32.2 g/dL (33-37); MCV 85.6 FL (81-99); MONO# 0.45 X1000 (0.11-0.59); NEUT% 87.9 % (42.2-75.2); PLT 127 X1000 (130-400); RBC 3.55 XMIL (4.7-6.1)
[2017-01-20 06:03] LABS: CALCIUM 8.5 mg/dL (8.8-10.2); POTASSIUM 5.2 mmol/L (3.5-5.1)
[2017-01-20] MEDS: HUMULIN R SUBQ SCH (06:14)
[2017-01-20 06:31] LABS: BANDS 8 % (0-1); LYMPHS 6 % (21-51); MONO 4 % (1-9)
[2017-01-20] MEDS ORDERED: DUONEB (A & A) ONE (07:09)
--- NOTE | 2017-01-20 07:50 | Diag Imaging Result Document ---
PROCEDURE NAME: CHEST-1 VIEW - 01/20/2017 PORTABLE CHEST: COMPARISON: 01/19/2017. FINDINGS: PICC line remains in place. There has been some increase in infiltrates or edema at the bilateral lung bases. There are no other interval changes identified. IMPRESSION: Some increase in infiltrates or edema at bilateral lung bases.
[2017-01-20] MEDS: ADVAIR 100/50 DISKUS INH SCH ×2 (07:51→20:16)
[2017-01-20] MEDS: DUONEB (A & A) INH SCH ×5 (07:51→23:03)
[2017-01-20] MEDS: MIRALAX PO SCH (08:35)
[2017-01-20] MEDS: PREDNISONE PO SCH (08:36)
[2017-01-20] MEDS: CENTRUM SILVER PO SCH (08:38)
[2017-01-20] MEDS: VITAMIN B-1 PO SCH (08:38)
[2017-01-20] MEDS: SUBUTEX SL SCH ×3 (08:38→17:08)
[2017-01-20] MEDS: HALDOL IV PRN (08:39)
[2017-01-20] MEDS: LOVENOX SUBQ SCH (08:39)
[2017-01-20] MEDS ORDERED: ATIVAN IV PRN (10:01)
[2017-01-20] MEDS ORDERED: LEVAQUIN 750 MG/D5W 750 MG/150 ML IVPB IV SCH (10:57)
--- NOTE | 2017-01-20 11:46 | PROGRESS NOTE ---
DATE: 01/20/2017 SUBJECTIVE: The patient is lying in bed. He is currently very weak and fatigued. Physical Therapy is attempting to get him up to walk. The patient denies any GI, issues. Denies any skin rashes. PHYSICAL EXAMINATION: Vital signs: Temp 98, pulse 63, respiratory 14, BP 125/74. General: The patient is awake, alert. He appears oriented. He is very weak and fatigued. Neck: Supple. CV: Regular rate. Chest: Relatively clear, no apparent wheezing, no crackles. Abdomen: Soft, nontender, no hepatosplenomegaly. Extremities: He is noted to move all extremities, although he is generally weak. He has no edema, no clubbing or cyanosis. He has a right upper extremity amputation. Neurological: The patient is awake, alert. His answers are very slow, but he does appear to answer questions appropriately. LABS: Hemoglobin and hematocrit 9 and 30. Potassium 5.2, creatinine 1.8, glucose 184. ASSESSMENT: 1. Abnormal urinalysis. The patient had an abnormal UA on the , although it does not appear as though there was a culture that was obtained. Therefore, we will repeat his UA and will follow. 2. Hyperkalemia. The patient's potassium was elevated today. Will not change his medications. Will continue to encourage oral intake. Quick review of his medications does not appear to show anything that would elevate his potassium. Therefore, we will follow him. 3. Acute hypercapnic respiratory failure secondary to COPD and medications. He has been switched to p.o. steroids. 4. Acute renal failure. Will recheck a urinalysis. Continue to follow his labs. Creatinine has been relatively stable for the past several days at 1.7 to 1.8. 5. Hypocalcemia. Continue to follow. 6. Hyperglycemia. Will continue his sliding scale insulin. Will check his A1c. Continue fingersticks. 7. Tachycardia, resolved. 8. Pneumonia. Continue Levaquin although will change to p.o. as well as change his Zosyn to p.o. as he is eating and drinking without any difficulty. Will decrease his Levaquin to 500 mg due to his renal dysfunction. 9. Iron-deficiency anemia. 10.Physical deconditioning. Continue physical therapy. Certainly, expect that patient is going to require further inpatient rehab. 11.Leukocytosis, resolved. White count was 17, currently down to 9. 12.Chronic substance abuse. The patient, unfortunately, is very well known to me. He has been admitted through [facility] multiple times in the past. He actually was in an outpatient Suboxone treatment facility until he continued to fail secondary to drug abuse and drug use. The patient, unfortunately, has a significant history of drug abuse and drug use. He currently is on, in my opinion, vlnqsm-[id number] doses of opiates and benzos. The patient has a proclivity to take whatever he can find and continue to ask for more. We will begin weaning his respiratory suppressant opiates as well as benzos, as this certainly could be contributing to his acute hypercapnic respiratory failure, altered mental status, recurrent pneumonia, etc. Will discontinue IV morphine. Will decrease his Ativan which currently is listed at 2 mg to 1 mg IV q.8 h. p.r.n. for agitation. Will begin weaning his Librium from 10 mg q.6 h. to 10 mg q.8 h. today and 10 mg q.12 h. tomorrow. Will not decrease his Subutex today, although this certainly needs to be decreased in the future; 8 mg three times a day is higher than the average dose. Will begin tomorrow decreasing to 8 mg twice a day and 4 mg in the afternoon and continue to wean to improve patient's respiratory status. I have discussed this with Mr. Orellana today as well as on multiple previous occasions, that if he continues to take high doses of Subutex and benzos as well as continue to smoke, that his family and friends will find him one morning due to respiratory failure. cc: Herman Murillo MD
[2017-01-20] MEDS: HUMALOG SUBQ SCH ×3 (12:38→21:16)
[2017-01-20] MEDS: LEVAQUIN PO SCH (14:07)
[2017-01-20 17:33] LABS: URINE SOURCE CLEAN CATCH
[2017-01-20 17:34] LABS: COLOR YELLOW; TURBIDITY URINE CLEAR (CLEAR); UR EPITHELIAL CELLS >10 /HPF (<10); URINE BACTERIA NEGATIVE /HPF; URINE RBC <10 /HPF (<10); URINE WBC >40 /HPF (<10)
[2017-01-20 17:35] LABS: BILIRUBIN URINE NEGATIVE (NEGATIVE); BLOOD URINE SMALL (NEGATIVE); GLUCOSE URINE 300 mg/dL (NEGATIVE); SP GRAVITY URINE 1.011
[2017-01-20 17:36] LABS: LEUKOCYTES URINE LARGE (NEGATIVE); NITRITE URINE NEGATIVE (NEGATIVE); PROTEIN URINE TRACE mg/dL (NEGATIVE); URINE CULTURE NEEDED? YES; URINE MICRO REVIEW NEEDED? YES; UROBILINOGEN URINE NORMAL (NORMAL)
[2017-01-20 17:37] LABS: URINE CASTS NONE SEEN; URINE CRYSTALS NONE SEEN
[2017-01-21] MEDS: LIBRIUM PO SCH ×3 (03:16→21:49)
[2017-01-21] MEDS: CARDIZEM PO SCH ×4 (03:16→20:54)
[2017-01-21] MEDS: DUONEB (A & A) INH SCH ×6 (04:13→23:39)
[2017-01-21] MEDS: ZOSYN 3.375 GM/NS 3.375 GM/50 ML IVPB IV SCH ×3 (04:56→22:16)
[2017-01-21] MEDS: NITROGLYCERIN TOP SCH ×4 (04:57→21:49)
[2017-01-21] MEDS: HUMALOG SUBQ SCH ×4 (06:04→20:57)
[2017-01-21 06:49] LABS: EOS# 0.03 X1000 (0.0-0.7); EOS% 0.3 % (0.0-10.0); HEMATOCRIT 27.2 % (42.0-52.0); HEMOGLOBIN 8.9 g/dL (14.0-18.0); IMM GRAN# 0.02 X1000 (0.0-0.04); IMM GRAN% 0.2 % (0.0-0.5); LYMPH# 0.43 X1000 (1.2-3.4); MANUAL DIFF NEEDED? YES; MCH 27.9 PG (27-31); MCHC 32.7 g/dL (33-37); MCV 85.3 FL (81-99); MONO# 0.38 X1000 (0.11-0.59); MONO% 4.4 % (1.7-9.3); NEUT% 90.1 % (42.2-75.2); PLT 105 X1000 (130-400); RBC 3.19 XMIL (4.7-6.1)
[2017-01-21] MEDS: ADVAIR 100/50 DISKUS INH SCH ×2 (07:14→19:06)
[2017-01-21 07:24] LABS: ALBUMIN 2.7 g/dL (3.5-5.0); CALCIUM 7.3 mg/dL (8.8-10.2); MAGNESIUM 1.3 mg/dL (1.5-2.7); POTASSIUM 5.2 mmol/L (3.5-5.1); TOTAL BILIRUBIN 0.35 mg/dL (0.20-1.00)
--- NOTE | 2017-01-21 07:28 | Diag Imaging Result Document ---
PROCEDURE NAME: CHEST-1 VIEW - 01/21/2017 PORTABLE CHEST: COMPARISON: Compared to 01/20/2017. FINDINGS: No change in the left-sided PICC line. The heart is not enlarged. Mild decreased interstitial markings compared to prior exam. Interval decrease in the small effusions. There has been prior surgery to each clavicle. IMPRESSION: Overall minimal improvement.
[2017-01-21] MEDS ORDERED: MAGNESIUM SULFATE 2 GM/S.W.I. 2 GM/50 ML IVPB IV ONE (08:31)
[2017-01-21 09:36] LABS: HYPOCHROM 1+; LYMPHS 12 % (21-51); MONO 2 % (1-9)
[2017-01-21] MEDS: LOVENOX SUBQ SCH (10:54)
[2017-01-21] MEDS: CENTRUM SILVER PO SCH (10:55)
[2017-01-21] MEDS: PREDNISONE PO SCH (10:55)
[2017-01-21] MEDS: VITAMIN B-1 PO SCH (10:55)
[2017-01-21] MEDS: MIRALAX PO SCH (10:55)
--- NOTE | 2017-01-21 11:10 | PROGRESS NOTE ---
DATE: 01/21/2017 SUBJECTIVE: The patient states he is feeling much better this morning. He was actually able to ambulate the kohli some yesterday with physical therapy. Denies any current chest pain or palpitations. States that he is eating better. In fact, notes he is eating better than he has in several weeks. PHYSICAL EXAMINATION: Vital Signs: Temperature 97, pulse 77, respiratory rate 16, BP 93/58 to 140/84, saturations 92-98% on room air. General: Patient is awake, alert, oriented. He is currently in no real respiratory distress. He appears much closer to his baseline. HEENT: Normocephalic. Neck: Supple. CV: Regular rate. Chest: Relatively clear. Abdomen: Soft. Extremities: Moves all extremities. Neurologic: No focal changes. Skin: Warm, dry. No rashes. He has a right upper extremity amputation with chronic scars. ASSESSMENT: 1. Altered mental status secondary to overuse and abuse of recreational drugs. Patient is back to his baseline this morning. 2. Acute hypoxic and hypercapnic respiratory failure, resolved. 3. Acute renal failure. Continues to improve, although not quite to his baseline. 4. Hyperkalemia. Potassium is 5.2. He currently is not on any medications that would elevate his potassium. We will continue to follow. 5. Pneumonia. Continue Zosyn. Hopefully, can transition over to oral antibiotics in the next day or two. 6. Leukocytosis, resolved. 7. Hypomagnesemia. We will replace and recheck in the morning. 8. Chronic opiate abuse. The patient currently is on 8 mg of Subutex 3 times a day. This is a dose higher than he needs to stay on. Discussed with him today the plan that he will decrease to 8 mg twice a day and 4 mg at 2 p.m. today. Over the next day or two, the 4 mg will need to be decreased to 2 mg and subsequently weaned away. The patient notes that he understands, states he understands that he has been overusing and abusing medications, and notes that this is the reason for his current situation. I also discussed with patient that he has to continue to wean down his Librium. He is much more awake and alert after Librium has been decreased yesterday. Certainly, it is possible that as he continues to improve, that he may actually be able to go home instead of rehabilitation. As noted yesterday, his morphine as needed and Ativan as needed have been discontinued. cc: Herman Murillo MD
[2017-01-21] MEDS: LEVAQUIN PO SCH (11:36)
[2017-01-21] MEDS: SUBUTEX SL SCH ×2 (15:07→20:55)
[2017-01-22] MEDS: LIBRIUM PO SCH ×3 (01:46→19:34)
[2017-01-22] MEDS: CARDIZEM PO SCH ×4 (01:46→21:55)
[2017-01-22] MEDS: DUONEB (A & A) INH SCH ×7 (02:46→23:21)
[2017-01-22] MEDS: NITROGLYCERIN TOP SCH ×4 (04:51→21:55)
[2017-01-22 05:57] LABS: EOS# 0.02 X1000 (0.0-0.7); EOS% 0.3 % (0.0-10.0); HEMATOCRIT 26.1 % (42.0-52.0); HEMOGLOBIN 8.6 g/dL (14.0-18.0); LYMPH# 0.48 X1000 (1.2-3.4); LYMPH% 6.4 % (20.5-51.1); MANUAL DIFF NEEDED? YES; MCH 27.9 PG (27-31); MCV 84.7 FL (81-99); MONO# 0.33 X1000 (0.11-0.59); MONO% 4.4 % (1.7-9.3); MPV 9.9 FL (7.4-10.4); NEUT% 88.9 % (42.2-75.2); PLT 99 X1000 (130-400); RBC 3.08 XMIL (4.7-6.1)
[2017-01-22 06:04] LABS: ALBUMIN 2.8 g/dL (3.5-5.0); CALCIUM 9.2 mg/dL (8.8-10.2); MAGNESIUM 1.9 mg/dL (1.5-2.7); POTASSIUM 5.1 mmol/L (3.5-5.1); TOTAL BILIRUBIN 0.27 mg/dL (0.20-1.00); TOTAL PROTEIN 5.7 g/dL (6.3-8.3)
[2017-01-22 06:15] LABS: BANDS 8 % (0-1); LYMPHS 6 % (21-51); MONO 4 % (1-9)
[2017-01-22] MEDS: HUMALOG SUBQ SCH ×4 (07:14→22:14)
[2017-01-22] MEDS: ZOSYN 3.375 GM/NS 3.375 GM/50 ML IVPB IV SCH ×3 (07:17→22:12)
[2017-01-22] MEDS: ADVAIR 100/50 DISKUS INH SCH ×2 (08:01→19:53)
[2017-01-22] MEDS: VITAMIN B-1 PO SCH (08:20)
[2017-01-22] MEDS: CENTRUM SILVER PO SCH (08:21)
[2017-01-22] MEDS: PREDNISONE PO SCH (08:21)
[2017-01-22] MEDS: LOVENOX SUBQ SCH (08:21)
[2017-01-22] MEDS: MIRALAX PO SCH (08:21)
[2017-01-22] MEDS: SUBUTEX SL SCH ×3 (08:21→21:55)
--- NOTE | 2017-01-22 08:31 | Diag Imaging Result Document ---
PROCEDURE NAME: CHEST-1 VIEW - 01/22/2017 PORTABLE CHEST: Compared with 01/21/2017. FINDINGS: PICC line remains in place. Heart size is normal. There has been mild increase in basilar infiltrates or atelectasis. There is no pneumothorax seen. IMPRESSION: Mild increase in basilar infiltrates or atelectasis.
[2017-01-22] MEDS: LEVAQUIN PO SCH (11:43)
--- NOTE | 2017-01-22 15:19 | PROGRESS NOTE ---
DATE: 01/22/2017 SUBJECTIVE: The patient states that he feels a lot better today. He states that he wants to get up and walk as much as possible. He has no complaints. OBJECTIVE: Vital Signs: Temperature 97.6 degrees, blood pressure 109/96, heart rate 66, respirations 18, O2 sats 97% on 2 L nasal cannula. General: This is an elderly male, sitting up in bed in no acute distress. Head: Normocephalic, atraumatic. Heart: S1, S2 normal. Regular rate and rhythm. Lungs: Clear to auscultation bilaterally. Abdomen: Positive bowel sounds. Soft, nontender, nondistended. Extremities: No edema. No cyanosis. No calf tenderness. Neurologic: The patient is alert and oriented x3. LABS: White blood cell count 7.5, hemoglobin 8.6, hematocrit 26, platelets 99, 000. Sodium 133, potassium 5.1, chloride 95, CO2 30. BUN 37, creatinine 1.8, glucose 110. ASSESSMENT AND PLAN: 1. Metabolic encephalopathy. Resolved. 2. Acute hypercapnic respiratory failure. Resolved. We will attempt to wean the patient off of supplemental oxygen. 3. Hyperkalemia. Improved. 4. Stage 3 chronic kidney disease. Stable. 5. Chronic opiate abuse. The patient is currently on 20 mg of Suboxone. The patient will follow up with his primary care physician, Dr. Seals to discuss tapering of the Suboxone. 6. Chronic obstructive pulmonary disease. Stable. Continue on bronchodilator therapy. 7. Deep vein thrombosis prophylaxis. Continue on Lovenox. 8. Continue with physical therapy. DISPOSITION: The patient states that he is interested in home health services. We will consult geriatric social work professor to get this set up for the patient. cc: Chanda Lei MD [facility]ily
[2017-01-23] MEDS: CARDIZEM PO SCH ×3 (02:46→14:15)
[2017-01-23] MEDS: LIBRIUM PO SCH ×2 (02:46→10:30)
[2017-01-23] MEDS: DUONEB (A & A) INH SCH ×3 (03:23→11:38)
[2017-01-23] MEDS: NITROGLYCERIN TOP SCH ×2 (04:59→11:09)
[2017-01-23 05:49] LABS: EOS# 0.02 X1000 (0.0-0.7); EOS% 0.3 % (0.0-10.0); HEMATOCRIT 26.1 % (42.0-52.0); HEMOGLOBIN 8.6 g/dL (14.0-18.0); IMM GRAN# 0.03 X1000 (0.0-0.04); IMM GRAN% 0.4 % (0.0-0.5); LYMPH# 0.37 X1000 (1.2-3.4); LYMPH% 4.7 % (20.5-51.1); MANUAL DIFF NEEDED? YES; MCH 28.2 PG (27-31); MCV 85.6 FL (81-99); MONO# 0.34 X1000 (0.11-0.59); MONO% 4.3 % (1.7-9.3); MPV 9.8 FL (7.4-10.4); NEUT% 90.3 % (42.2-75.2); PLT 93 X1000 (130-400); RBC 3.05 XMIL (4.7-6.1)
[2017-01-23 06:01] LABS: CALCIUM 9.1 mg/dL (8.8-10.2); POTASSIUM 4.9 mmol/L (3.5-5.1)
[2017-01-23] MEDS: HUMALOG SUBQ SCH ×2 (06:39→11:06)
[2017-01-23] MEDS: ZOSYN 3.375 GM/NS 3.375 GM/50 ML IVPB IV SCH (06:39)
[2017-01-23 06:44] LABS: LYMPHS 10 % (21-51); MONO 4 % (1-9)
--- NOTE | 2017-01-23 07:32 | Diag Imaging Result Document ---
PROCEDURE NAME: CHEST-1 VIEW - 01/23/2017 PORTABLE CHEST: COMPARISON: Compared to 01/22/2017. FINDINGS: No change in the left-sided PICC line. The lungs are well expanded. The heart is not enlarged. There are basilar infiltrates. These appear slightly less dense in the right base than on the prior exam. Mild central vascular prominence remains. I believe there is a tiny left effusion. The lung apices remain clear. IMPRESSION: Mild interval improvement.
[2017-01-23] MEDS: VITAMIN B-1 PO SCH (08:08)
[2017-01-23] MEDS: PREDNISONE PO SCH (08:08)
[2017-01-23] MEDS: CENTRUM SILVER PO SCH (08:08)
[2017-01-23] MEDS: LOVENOX SUBQ SCH (08:09)
[2017-01-23] MEDS: MIRALAX PO SCH (08:10)
[2017-01-23] MEDS: ADVAIR 100/50 DISKUS INH SCH (08:12)
[2017-01-23] MEDS: SUBUTEX SL SCH ×2 (09:30→14:16)
[2017-01-23] MEDS: LEVAQUIN PO SCH (11:12)
[2017-01-23 11:48] VITALS: BP 105/69
[2017-01-23] MEDS ORDERED: HEPARIN ONE (14:02)
--- NOTE | 2017-01-23 15:08 | DISCHARGE SUMMARY ---
ADMISSION DATE: 12/31/2016 DISCHARGE DATE: 01/23/2017 FINAL DISCHARGE DIAGNOSES: 1. Acute hypoxemic respiratory failure. 2. Acute chronic obstructive pulmonary disease exacerbation. 3. Pneumonia. 4. Metabolic encephalopathy. 5. Acute kidney injury on chronic kidney disease stage 3. 6. Paroxysmal atrial fibrillation. 7. Chronic opiate abuse. 8. Polysubstance abuse. 9. Chronic pain syndrome. 10. Bipolar disorder. 11. Gastroesophageal reflux disease. CONSULTATIONS REQUESTED DURING THIS HOSPITAL STAY: 1. Pulmonary consultation with Dr. Anderson. 2. Nephrology consultation with Dr. Villagran. 3. Cardiology consultation with Dr. Perez. 4. Neurology consultation with Dr. Engel. IMAGING PERFORMED DURING THIS HOSPITAL STAY: 1. Head CT performed on 12/31/2016. That was noted to be negative. 2. Renal ultrasound performed on 01/04/2017. That was noted to be unremarkable. 3. A 2 dimensional echocardiogram performed on 01/07/2017 that revealed an ejection fraction of 55-60% and normal left ventricular cavity size. 4. The MRI of the brain performed on 01/08/2017 that revealed no acute pathology. 5. The chest x-ray performed on 01/09/2017 that revealed dense bilateral infiltrates and pulmonary vascular congestion. HOSPITAL COURSE: Mr. Orellana is a 56-year-old male with a history of polysubstance abuse, chronic pain syndrome and COPD who was initially brought to the ER after the patient was noted to be minimally responsive at home. On admission, a urine drug toxicology screen was done that was noted to be positive for marijuana and amphetamines, as well as benzos. It was thought that the patient was over medicating itself as per family members. Also the patient was noted to be in atrial fibrillation with rapid ventricular response. On the day of admission he was given 2 doses of adenosine while in the ER, and the arrhythmia broke. Given these findings the patient was admitted to the ICU for further treatment and evaluation. A chest x-ray was done that revealed bilateral infiltrates concerning for pneumonia. Cultures were obtained to include blood and sputum and broad-spectrum antibiotics were started. On admission the patient was also noted to have rhabdomyolysis as well with a CK of [id number]. Over the course of the hospitalization, the patient's BUN and creatinine started to rise and so Nephrology was consulted. After urine electrolytes and a renal ultrasound were done, it was thought that the patient was suffering from ATN. Unfortunately, over the course of the hospital stay, the patient's respiratory status started to decline and so pulmonary was consulted. IV steroids were added to the patient's medication regimen, as well as scheduled bronchodilator therapy, in addition to antibiotics. The patient did have a prolonged course in the ICU due to his pulmonary issues, as well as mental status issues. Neurology was consulted for assistance with determining what the etiology of the patient's altered mental status was, and it thought to be medication induced. Prior to admission the patient was on Xanax as well as Suboxone for chronic opiate abuse. Slowly over the course of the hospitalization, the patient's mental status, as well as respiratory status, continued to improve and was ultimately transferred to the medical floor. The patient has now been weaned down to 2 L nasal cannula of supplemental oxygen. He is off IV steroids and currently on prednisone. The patient is back to his baseline level of function from a neuro standpoint. The patient was also seen by physical therapy and it was recommended that the patient would benefit from a stay at an inpatient rehabilitation center. On 01/23/2017 the patient was accepted for discharge to [facility]. DISCHARGE MEDICATIONS: 1. Subutex 8 mg sublingual twice a day. 2. Cardizem 60 mg p.o. every 6 hours. 3. Levaquin 500 mg p.o. every 24 hours x 5 days. 4. Medrol Dosepak use as directed. 5. Multivitamin 1 tablet oral daily. 6. Prilosec 40 mg p.o. daily. 7. MiraLAX 17 g oral daily. 8. Librium 10 mg p.o. twice a day for four more days. 9. Thiamine 100 mg p.o. daily. 10. DuoNeb inhaled every 4 hours. 11. Advair 100/50 mcg 1 puff twice a day. 12. Zofran 4 mg p.o. every 6 hours p.r.n. for nausea. DISCHARGE DIET: Regular diet. ACTIVITY: As tolerated. FOLLOWUP INSTRUCTIONS: The patient will need to follow up with Dr. Seals in [place] to further discuss weaning off of the Subutex. cc: MD Isabella Corrales MD
--- NOTE | 2017-01-30 02:13 | PROVIDER DOCUMENTATION ---
This chart was entered by Charity Ellsworth Scribe, acting as scribe for Ishaan Conrad MD. HPI-General Adult - General Chief Complaint: Altered Mental Status Stated Complaint: SOB,WEAKNESS Time Seen by Provider: 12/31/16 15:11 Source: patient Allergies/Adverse Reactions: Patient Allergies Allergy/AdvReac Type Severity Reaction Status Date / Time cyclobenzaprine HCl * Allergy Mild NAUSEA Verified 04/24/16 14:10 [From Flexeril] tramadol HCl * [From Ultram] Allergy Mild NAUSEA Verified 04/24/16 14:10 Home Medications: Home Medication List Medication Instructions Recorded Confirmed Last Taken Type Albuterol 2.5MG/Ipratrop 0.5MG 3 ml INH Q4H #0 04/29/13 12/31/16 3 Days Ago Rx [Duoneb (A & A)] Fluticasone/Salmet 100/50 INH 1 puff INH RTBID #1 inhaler 07/24/15 12/31/16 Rx [Advair 100/50 Diskus] Ondansetron [Zofran] 4 mg PO Q6H PRN PRN #20 tablet 04/24/16 12/31/16 Unknown Rx Buprenorphine S.l. [Subutex] 8 mg SL BID #14 tablet 01/23/17 Unknown Rx Diltiazem C.d. [Cardizem C.d] 240 mg PO DAILY #30 capsule 01/23/17 Unknown Rx Levofloxacin [Levaquin] 500 mg PO DAILY #5 tablet 01/23/17 Unknown Rx Methylprednisolone [Medrol Dosepak] 4 mg PO DIRECTED #1 package 01/23/17 Unknown Rx Multivit-Min/FA/Lycopen/Lutein 1 each PO DAILY #30 tablet 01/23/17 Unknown Rx [Centrum Silver Men Tablet] Omeprazole 40 mg PO DAILY #30 capsule. 01/23/17 Unknown Rx - History of Present Illness -Gen Adult Nature of Presenting Problems: 56 yo M presents to the ER with AMS, tachycardia, and SOB. Pt's friend brought him to the ER, states he was increasingly less responsive today. Review of Systems - Adult - REVIEW OF SYSTEMS - ADULT ROS:: unobtainable per condition Constitutional: reports: no symptoms reported Eyes: reports: no symptoms reported Ears, Nose, Mouth & Throat: reports: no symptoms reported Cardiovascular: reports: irregular heart rate. denies: chest pain Respiratory: reports: no symptoms reported Gastrointestinal: reports: no symptoms reported Genitourinary: reports: no symptoms reported Musculoskeletal: reports: no symptoms reported Integumentary: reports: no symptoms reported Neurological: reports: no symptoms reported Psychiatric: reports: no symptoms reported Endocrine: reports: no symptoms reported Hematologic/Lymphatic: reports: no symptoms reported Allergic/Immunologic: reports: no symptoms reported All Other Systems: Reviewed and Negative Past History - Adult - PAST MEDICAL HISTORY-ADULT Review of Records: reports: Nursing Assessment Review, Medications Reviewed Gastrointestinal: reports: GERD Genitourinary: reports: other Musculoskeletal: reports: chronic pain Psychiatric: reports: psychiatric problems - PRIOR SURGERIES/PROCEDURES Surgical/Procedure History: reports: appendectomy, orthopedic (extremity), joint replacement (hip), other (R arm amputation) - PRIOR HOSPITALIZATIONS Prior Hospitalizations: reports: for other non-related - IMMUNIZATION STATUS Childhood Immunizations: See Nurse Assessment Flu Vaccine: See Nurse Assessment Physical Exam-General - PHYSICAL EXAM-ADULT Initial Vital Signs Reviewed: Yes - CONSTITUTIONAL General Appearance: slow to respond - EYES Eyes: PERRL/EOMI, pink conjunctivae - CARDIOVASCULAR Cardiovascular: normal peripheral pulses, tachycardia - SKIN Integumentary: normal color, warm/dry - NEUROLOGIC Neurologic: grossly normal, no motor/sensory deficits - PSYCHIATRIC Psych/Mental Status: normal mood/affect, normal thought content, normal thought process, oriented x 3 Progress - PLAN OF CARE/RESULTS Progress/Plan/Lab Results: Vital Signs - 8 hr 12/31/16 14:57 Pulse Rate 183 H Blood Pressure 91/76 Laboratory Results - last 24 hr 12/31/16 15:01 POC Glucose 82 Orders Category Date Time Status 0.9% Sodium Chloride Inj [Ns] 1,000 ml Med 12/31/16 15:02 Discontinued .ROUTE As Directed Adenosine [Adenocard] Med 12/31/16 15:01 Discontinued 18 mg .ROUTE .STK-MED ONE Result Diagrams: 01/23/17 05:15 01/23/17 05:15 - EKG 1 Time of EKG reading by physician:: 14:54 EKG Read and Signed by:: Ishaan Conrad EKG Interpretation (*Must complete 3 of following elements*): Abnormal Rate: 181 Rhythm: supraventricular tachycardia Arden: normal QRS: normal [place] Interval: normal ST Wave: non-specific ST changes (ST&T wave abnormality, consider inferior ischemia) 2 Time of EKG reading by physician:: 15:35 EKG Read and Signed by:: Ishaan Conrad EKG Interpretation (*Must complete 3 of following elements*): Abnormal Rate: 107 Rhythm: atrial flutter with variable AV block Arden: normal QRS: normal [place] Interval: normal ST Wave: normal - CONSULTS/PCP/HOSPITALIST Notification #1 *Consult/PCP/Hospitalist*: Dr. Murillo Time Discussed: 16:00 Consult Disposition: Admit Departure - Departure Time of Disposition Decision: 16:07 DIAGNOSIS: Drug abuse Pneumonia Qualifiers: Pneumonia type: due to unspecified organism Laterality: bilateral Lung location : unspecified part of lung Qualified Code(s): J18.9 - Pneumonia, unspecified organism Afib Qualifiers: Atrial fibrillation type: unspecified Qualified Code(s): I48.91 - Unspecified atrial fibrillation Disposition: ADMITTED INPATIENT 09 Certified Medical Emergency: Emergent Condition: Stable - Critical Care Note This patient required my direct & personal management of CC.: No Total Time (mins): 45 Critical Care Statement: This patient required my direct personal management to treat or rule out processes, the absence of which, could potentiallly result in sudden, clinically significant life or limb threatening deterioration. This chart was documented by the indicated scribe, (Charity Ellsworth Scribe) and accurately reflects the services I performed and decisions made by me, Ishaan Conrad MD, as attested by the provider's signature.
== END 2017-01-23 15:30 ==
LOC: P.ED 14:46 → P.ICU 16:54 → SUATTDRO 16:54 → ICU 01-06 16:27 → 4N 01-15 16:11
PROVIDERS: ATTEND Internal Medicine